=== PATIENT | female | born 1945 | race Caucasian/White ===

== ENCOUNTER → 2023-07-18 15:03 | Outpatient (REF) | payer OTHER, SELFPAY ==
[2023-07-18 15:59] LABS: % Basophils 0.5 % (0-2); % Immature Granulocytes 0.5 % (0-0.5); % Lymphocytes 40.8 % (20.5-51.1); % Monocytes 11.6 % (1.7-9.3); % Neutrophils 44.6 % (42.2-75.2); Absolute Eosinophils 0.2 10^3/uL (0-0.7); Absolute Lymphocytes 3.4 10^3/uL (1.2-3.4); Absolute Neutrophils 3.7 10^3/uL (1.4-6.5); Hematocrit 42.5 % (37.0-47.0); Hemoglobin 14.9 g/dL (12.0-16.0); Mean Corp Hgb Conc. 35.1 g/dL (33.0-37.0); Mean Corpuscular Hgb 32.4 pg (27.0-31.0); Mean Corpuscular Volume 92.4 fL (81.0-99.0); Mean Platelet Volume 9.7 fL (7.4-10.4); Nucleated Red Blood Cells % 0 %; Platelet Count 253 10^3/uL (130-400); Red Cell Dist. Width 12.8 % (11.5-14.5); White Blood Cell Count 8.4 10^3/uL (4.8-10.8)
[2023-07-18 16:00] LABS: Urine Albumin Trace (Neg - Trace); Urine Bilirubin Negative (Negative); Urine Character Slightly Cloudy (Clear); Urine Color Yellow; Urine Glucose Negative (Negative); Urine Ketone Negative (Negative); Urine Leukocyte 2+ (Negative); Urine Nitrite Negative (Negative); Urine Occult Blood 2+ (Negative); Urine Specific Gravity 1.015 (<1.030); Urine Urobilinogen Negative (Neg - 1+)
[2023-07-18 16:13] LABS: Blood Urea Nitrogen 23 mg/dl (7-17); Calcium 9.6 mg/dl (8.4-10.2); Carbon Dioxide 24 mmol/L (22-30); Chloride 102 mmol/L (98-107); Glucose 134 mg/dl (70-99); Potassium 3.8 mmol/L (3.5-5.1); Sodium 136 mmol/L (135-145); Urine Squamous Cell 0-2 /LPF (Few); eGFR > 60.00
[2023-07-18 16:14] LABS: Urine Bacteria Many (Negative); Urine White Cell >100 /HPF (0-5)
== END ==
LOC: RAD 15:03
PROVIDERS: ATTENDING PHYSICIAN Registered Nurse Ambulatory Care
DX: R35.0 Frequency of micturition (principal); R05.1 Acute cough
CPT/HCPCS: 36415; 71046; 80048; 81003; 81015; 85025; 87077; 87086; 87186

== ENCOUNTER → 2024-02-11 13:34 | Outpatient (REF) | payer OTHER, SELFPAY | LOC: WDC 13:34 | PROVIDERS: ATTENDING PHYSICIAN Family Medicine | DX: Z12.31 Encounter for screening mammogram for malignant neoplasm of breast (principal) | CPT/HCPCS: 77063; 77067 ==

== ENCOUNTER → 2024-02-20 16:21 | Outpatient (REF) | payer OTHER, SELFPAY | LOC: RAD 16:21 | PROVIDERS: ATTENDING PHYSICIAN Family Medicine | DX: R31.9 Hematuria, unspecified (principal); R80.9 Proteinuria, unspecified | CPT/HCPCS: 76770 ==

== ENCOUNTER 2025-01-09 07:20 | Day surgery (SDC) | payer OTHER, SELFPAY ==
--- NOTE | 2025-01-06 09:13 | HPS.HSE ---
Family Physician
-
Family Physician: NO INTERVIEW UNKNOWN
Chief Complaint
-
Paroxysmal atrial fibrillation.
History of Present Illness
The patient is an 79-year-old female presenting today for paroxysmal atrial fibrillation. The patient reports a history of elevated heart rates, mild chest discomfort, and exertional dyspnea and fatigue secondary to her arrhythmia. She
previously underwent pulmonary vein isolation in 2008, a redo ablation in 2011, and a convergent endo and epi LA ablation in 2012. She has also undergone 2 BLAYNE-guided cardioversions in 2011 and 2012. She is on current pharmacological therapy with
Diltiazem and Metoprolol Succinate. She is on Eliquis for oral anticoagulation. She initially was hesitant to take it twice a day and was only taking it once a day. As of more recently, however, she has agreed to take it twice a day. She reports no
major bleeding with the increased dosage. She is interested in pursuing pulmonary vein isolation for further arrhythmia management given her significant symptoms. Prior to her ablation, she will proceed first with a transesophageal echocardiogram to
definitively rule out a left atrial appendage thrombus. She denies any current complaints today such as chest pain and shortness of breath at rest, nausea, vomiting, diarrhea, cough, sore throat, or fever.
Medical History
Past Medical History
Past Medical History: Reports Other
Additional Past Medical History:
1. Paroxysmal atrial fibrillation, status post BLAYNE guided cardioversion , pulmonary vein isolation 2008, redo ablation 2011, and convergent endo and epi LA ablation 2012; pharmacological therapy with Diltiazem and Metoprolol Succinate, oral
anticoagulation with Eliquis.
2. Atypical atrial flutter.
3. Atrial tachycardia.
4. Hypertension.
5. Hyperlipidemia.
6. Aortic atherosclerosis.
7. Mild to moderate valvular disease.
8. Obstructive sleep apnea, intolerant of CPAP.
9. GERD.
10. Dysphagia.
11. Balance difficulties.
12. Chronic dizziness.
13. Multilevel degenerative disc disease.
14. Lumbar stenosis.
15. Osteoarthritis, status post left total knee arthroplasty, 2010, and right total knee arthroplasty, approximately 5 years ago.
16. Iron deficiency anemia.
17. Bladder prolapse with current pessary.
18. Interstitial cystitis.
19. Prediabetes.
20. Hearing impairment.
21. Poor historian.
22. Obesity, BMI 35.7.
Past Surgical History: Reports Other
Additional Past Surgical History:
1. Pulmonary vein isolation.
2. Redo atrial fibrillation ablation.
3. Convergent endo and epi LA ablation.
4. BLAYNE-guided cardioversion x2.
5. Loop recorder implant and subsequent removal.
6. Cardiac catheterization.
7. Left total knee arthroplasty.
8. Right total knee arthroplasty.
9. Total abdominal hysterectomy and bilateral salpingo-oophorectomy.
10. Open incisional hernia repair with mesh.
11. Appendectomy.
12. Multiple epidural steroid injections.
13. Bilateral cataract extraction.
14. Colonoscopy.
Social History
Tobacco: Non-smoker
Alcohol: None
Personal:
Living: Other (The patient lives in a one-story home with her . She reports that her grandson lives there Sunday through Sunday due to close proximity to work. )
Family History
Family History: Not pertinent
Allergies / Home Medications
Allergy/Medication List:
HOME MEDICATIONS:
1. Apixaban 5 mg p.o. twice a day.
2. Cholecalciferol 50 mcg p.o. daily.
3. Ellura 200 mg p.o. twice a day.
4. Diltiazem HCl 300 mg p.o. daily.
5. Estradiol 1 application vaginal daily.
6. Losartan-hydrochlorothiazide 100-25 mg p.o. daily.
7. Metoprolol succinate 25 mg p.o. daily.
8. Hewitt-3 fish oil 2 capsules p.o. daily.
ALLERGIES: Codeine. Lisinopril. Oxycodone. Sotalol. Verapamil. Mold.
Review of Systems
-
A 12 point ROS was completed and negative except as noted: Yes
Physical Exam
Vital Signs
Blood pressure 133/83, heart rate 114, respirations 18, pulse ox 94%, increasing to 97% with encouraged deep breathing.
Height 5 feet 4 inches, weight 94.3 kg, BMI 35.7.
Physical Exam
General: Well Developed, Well Nourished and No Apparent Distress
HEENT: NormoCephalic, Moist mucous membranes, Atraumatic and Hearing Impaired
Respiratory: Clear
Cardiac: Irregular Rhythm
GI: Soft, Non Tender, Non Distended and Other (Obese. )
Musculoskeletal: No Edema and Other (Poor balance noted. )
Skin: Warm and Dry
Neuro: AO x 3 and Nonfocal/grossly intact
Laboratory Results
-
DIAGNOSTIC STUDIES as of 01/05/2025: White blood cell count 9.0, hemoglobin 13.3, platelet count 247,000. PT 16.0, INR 1.25. Sodium 137, potassium 3.9, BUN 17, creatinine 0.6, glucose 127, calcium 9.8, magnesium 1.7, AST 20, ALT 18, albumin 4.5.
Blood type A positive.
EKG 01/05/2025: Atrial flutter with variable AV block. Nonspecific ST and T-wave abnormality. Prolonged QT.
Echocardiogram 02/01/2022: Ejection fraction is 65-70 percent. Thickened mitral valve leaflets, tips greater than base, with moderate mitral regurgitation. Trileaflet thickened aortic valve without stenosis or regurgitation. Mild tricuspid
regurgitation. Estimated pulmonary artery pressure of 46 mmHg, assuming a right atrial pressure of 10 mmHg. Mild pulmonic regurgitation.
Impression/Plan
-
IMPRESSION/PLAN:
1. Paroxysmal atrial fibrillation: The patient is in need of pulmonary vein isolation; however, prior to undergoing her ablation, she will proceed first with a transesophageal echocardiogram to definitively rule out a left atrial appendage thrombus.
This is scheduled for 01/09/[address] Kory Gan. The benefits and risks of the procedure have been explained to the patient. The patient understands these risks and wishes to proceed. She is aware to continue her Eliquis without
interruption pre-operatively.
[2025-01-09 08:05] VITALS: BMI 36.4
== END 2025-01-09 10:12 | disposition home or self-care (01) ==
LOC: CATH 07:20
PROVIDERS: ATTENDING PHYSICIAN Internal Medicine Cardiovascular Disease; FAMILY PHYSICIAN Family Medicine; REFERRING PHYSICIAN Internal Medicine Cardiovascular Disease
DX: I48.0 Paroxysmal atrial fibrillation (principal); I08.1 Rheumatic disorders of both mitral and tricuspid valves; I48.4 Atypical atrial flutter; R00.0 Tachycardia, unspecified; I10 Essential (primary) hypertension; E78.5 Hyperlipidemia, unspecified; I70.0 Atherosclerosis of aorta; G47.33 Obstructive sleep apnea (adult) (pediatric); K21.9 Gastro-esophageal reflux disease without esophagitis; R13.10 Dysphagia, unspecified; M19.90 Unspecified osteoarthritis, unspecified site; E66.9 Obesity, unspecified; Z88.5 Allergy status to narcotic agent; Z79.899 Other long term (current) drug therapy; Z90.49 Acquired absence of other specified parts of digestive tract; Z88.8 Allergy status to other drugs, medicaments and biological substances; Z90.722 Acquired absence of ovaries, bilateral; Z90.710 Acquired absence of both cervix and uterus; Z96.653 Presence of artificial knee joint, bilateral; M48.061 Spinal stenosis, lumbar region without neurogenic claudication; Z79.01 Long term (current) use of anticoagulants
CPT/HCPCS: 93312; 93320; 93325

== ENCOUNTER 2025-01-12 10:23 | Day surgery (SDC) | payer OTHER, SELFPAY ==
[2025-01-05 08:10] VITALS: BMI 35.7
[2025-01-05 08:39] LABS: Hematocrit 39.2 % (37.0-47.0); Hemoglobin 13.3 g/dL (12.0-16.0); Mean Corp Hgb Conc. 33.9 g/dL (33.0-37.0); Mean Corpuscular Volume 90.5 fL (81.0-99.0); Nucleated Red Blood Cells % 0 %; Platelet Count 247 10^3/uL (130-400); Red Cell Dist. Width 14.1 % (11.5-14.5)
[2025-01-05 08:49] LABS: INR 1.25; PT 16.0 Sec (11.4-14.6)
[2025-01-05 08:55] LABS: ALT (SGPT) 18 U/L (0-35); AST (SGOT) 20 U/L (14-36); Albumin 4.5 g/dl (3.5-5.0); Alkaline Phosphatase 85 U/L (38-126); Blood Urea Nitrogen 17 mg/dl (7-17); Calcium 9.8 mg/dl (8.4-10.2); Carbon Dioxide 24 mmol/L (22-30); Chloride 103 mmol/L (98-107); Estimated Creatinine Clearance 82 ml/min; Glucose 127 mg/dl (70-99); Magnesium 1.7 mg/dl (1.6-2.3); Potassium 3.9 mmol/L (3.5-5.1); Sodium 137 mmol/L (135-145); Total Protein 7.6 g/dl (6.3-8.2); eGFR > 60.00
[2025-01-12] VITALS (14 sets, daily range): BP systolic 137–176; BP diastolic 79–158
--- NOTE | 2025-01-12 07:40 | ITS.CL.ABL ---
[employer] - Ablation
Ablation
Procedure Report:
ELECTROPHYSIOLOGIC STUDY AND POSSIBLE ABLATION
DATE: January 12, 2025
Primary Care Provider: Dr. Bruna Linder
Primary Health Information Technician: Dr. Girma Kerr
INDICATION:
Symptomatic Atrial Fibrillation.
Persistent atrial tachyarrhythmia
HISTORY: See H and P.
Symptomatic AF, poorly controlled with attempted medical therapy
Initial PVI 08/19/08 followed by redo RF PVI 04/02/12 and then Convergent PVI (epi followed by Cryoballoon endocardial ablation) 07/22/12.
She has developed progressively and highly symptomatic atrial tachyarrhythmia which appears to be an atypical/left atrial tachyarrhythmia.
Transesophageal echocardiogram obtained January 09, 2025 finds normal left ventricular size and function with no wall motion abnormality, no significant valvular disease and no evidence of left atrial appendage thrombus.
HAS-BLED: 1
Age
CHADSVASc: 4
HTN
Age
F Gender
PRESENTING RHYTHM: atrial flutter, atypical
HISTORY: See H and P.
Symptomatic AF, poorly controlled with attempted medical therapy.
ANTICOAGULATION: Eliquis 5 mg twice daily
'TIME-OUT': called and confirmed.
SEDATION/ANESTHESIA: provided via the anesthesia department using general anesthesia.
PROCEDURE:
Ultrasound Guidance with real-time visualization of needle insertion and vessel patency performed by ar for femoral venous Vascular Access.
Under real-time US guidance, the needle was advanced with negative pressure into the vein. The needle was seen entering the vessel lumen with a good return of dark red flow, the syringe was removed, non-pulsatile, dark red blood low was noted and
the wire was passed without difficulty, then the needle was removed. US confirmed the wire was in the vein, not going into an artery,
Images were taken and saved for the patient's permanent record. Imaging findings typical femoral venous anatomy. Direct visualization of needle puncture into the femoral vein was observed and recorded.
A decapolar CS catheter was placed within the CS for mapping and pacing.
The intracardiac ultrasound catheter was positioned in the RA for continuous intracardiac ultrasound imaging.
Heparin bolus and infusion to target ACT at 300 -350 seconds was administered. Transseptal puncture was performed. This entailed advancing a sheath with dilator into the superior vena cava and withdrawing both (monitoring intracardiac ultrasound,
fluoroscopy and tip pressure) with the tip oriented toward the atrial septum. The fossa ovalis was engaged (indicated by sudden displacement of the sheath tip as well as tenting of the fossa seen on intracardiac ultrasound).
Transseptal puncture was performed. Left atrial catheter position was confirmed by echocardiographic imaging, pressure monitoring (LA mean pressure 15 mm Hg) and fluoroscopy. The sheath was advanced over the dilator and positioned in the left
atrium.
The CamStenta multipolar mapping/ablation Sphere-9 catheter was positioned through the transseptal sheath for high density mapping.
Geometry and voltage mapping was performed using the [employer] mapping system for three-dimensional electroanatomical mapping.
Catheter positioning was guided and confirmed using both I.C.E. and fluoroscopy.
High density electroanatomical three-dimensional mapping demonstrated Left common PV, RSPV, RIPV.
She presents in an atrial tachyarrhythmia at 330 ms with a distal to proximal activation sequence on the decapolar catheter positioned in the distal coronary sinus.
High density electroanatomical voltage and activation mapping demonstrated reconnection of the left inferior pulmonary vein towards its inferior quadrant and there is lack of complete posterior wall isolation with multiple areas of patchy low
voltage complex fractionated electrograms at the posterior wall of the left atrium. Additionally there is patchy low voltage complex fractionated electrograms along the ligament of Edison.
Entrainment mapping as well as activation mapping defined a clockwise mitral annular left atrial flutter circuit.
A combination of pulsed electric field energy closure to the left inferior pulmonary vein and radiofrequency energy closure to the mitral valve annulus was used to ablate along the mitral valve annulus. This ultimately slowed and terminated the
tachycardia.
Ablation then consisted of reisolating the left inferior pulmonary vein.
Next ablation was performed to isolate the posterior wall of the left atrium.
After posterior wall isolation mapping demonstrated areas of patchy low voltage as well as complex fractionated electrograms at the inferior posterior left atrium. This was addressed with an inferior ablation line.
Additionally, the area of the ligament of Edison was found to have patchy low voltage and complex fractionated electrograms this was also ablated using the sphere 9 and pulsed electric field energy.
In total, several areas of extra PV contributors to atrial fibrillation were addressed with pulsed electric field energy delivery via the sphere 9 catheter. These areas demonstrated patchy low voltage as well as complex fractionated electrograms.
These areas can be sites for the formation of rotors which can drive and maintain atrial fibrillation. These areas are known to be significant contributors to initiation and perpetuation of atrial fibrillation.
Targets for additional PFA ablation included:
LA posterior wall targeted with pulsed electric field energy isolating the posterior wall of the left atrium
After ablation of the posterior wall, additional targets were addressed:
LA inferior floor
The ridge of tissue between the left atrial appendage and the left sided pulmonary veins (Ligament of Edison )
These areas were ablated using pulsed electric field energy eliminating the extra PV contributors to atrial fibrillation.
Post ablation mapping finds entrance and exit block at each of the pulmonary veins the LA posterior wall and at the additional lines at Inferior/floor of the LA and the Ligament of Marshal rendering the sites no longer able to contribute to atrial
fibrillation.
Programmed electrical stimulation was performed and a regular atrial tachyarrhythmia at cycle length 240 ms was induced. Entrainment maneuvers as well as activation mapping demonstrated a focal atrial tachycardia at the anterior inferior base of
the left atrial appendage towards the mitral valve annulus at approximately 2:00 in GAMBIAN 30 degree view.
PFA application at this location terminated the tachycardia.
Programmed electrostimulation including burst atrial pacing as well the delivery of decremental extrastimuli down to atrial effective refractory period and no sustained arrhythmias could be induced.
Additionally, differential pacing from the coronary sinus catheter was used to assess for mitral annular block. Mitral annular block is evident with differential atrial pacing.
I.C.E. :
Pre-Ablation Post-Ablation
LVEF: 555 % 55 %
WMA: none none
Pericardial effusion: none none
LA Pressure 15
COMPLICATIONS:
none
SUMMARY:
- Mapping and ablation to isolate the PVs resulting in electrical isolation of the pulmonary veins
- Additional AF ablation sets X 2 after PVI (LA posterior wall, Inf/floor of the LA posterior wall, ligament of Edison) resulting in elimination of the targeted extra PV contributors to atrial fibrillation.
- Mapping and ablation of second tachycardia (reentraant mitral annular flutter) and distinct third tachycardia (focal left atrial tachycardia) rendering both noninducible with programmed electrical stimulation
- 3-D Electroanatomical Mapping
- Intracardiac Ultrasound
- Ultrasound guidance for vascular access
Post ablation, I discussed today's findings and results with the patient's , Long.
RECOMMENDATIONS:
- Observe in monitored bed.
- Maintain oral anticoagulation.
- Office visit with Swapna Smith on April 23, 2025
- Continue cardiovascular care with Dr. Girma Kerr
- She presents somewhat volume overloaded with elevated left atrial pressure prior to ablation and symptoms of dyspnea on exertion
Will treat with 20 mg of intravenous Lasix X 1 dose today.
Copy to:
Primary Care Provider: Dr. Bruna Linder
Primary Health Information Technician: Dr. Girma Kerr
[2025-01-12] MEDS: NSS 500 IV (10:48)
[2025-01-12] MEDS: EMEND 40 MG PO (12:17)
[2025-01-12 13:42] LABS: ACT-LR - POC 294 Seconds (116-155)
[2025-01-12 14:14] LABS: ACT-LR - POC 302 Seconds (116-155)
[2025-01-12] MEDS: LASIX 20 MG IV (15:03)
--- NOTE | 2025-01-12 16:01 | PTCARENOTE ---
Pt's bladder distended.Crying with discomfort. Unable to urinate. She was straight cathed for 1 L clear urine post order. Almost instant relief. All other assessments benign.
[2025-01-12] MEDS: CARDIZEM CD 300 MG PO (16:54)
[2025-01-12] MEDS: TOPROL XL 25 MG PO (16:54)
--- NOTE | 2025-01-12 17:09 | W.PN.UPDATE ---
Update Note
Progress Note Update
Pt seen post PFA/flutter ablation. Right groin with vascade closure, no ht/bleeding. OOB ambulating. Post EKG NSR 80s. Given 20mg IV lasix post procedure with excellent urine output. BP modestly elevated as well as HR, given metoprolol and diltiazem
with some improvement. Resume eliquis tonight. Followup at [facility] as scheduled. Home today if groin site/tele remain stable.
== END 2025-01-12 17:26 | disposition home or self-care (01) ==
LOC: CATH 10:23
PROVIDERS: ATTENDING PHYSICIAN Internal Medicine Cardiovascular Disease; FAMILY PHYSICIAN Family Medicine; OTHER PHYSICIAN Urology
DX: I48.0 Paroxysmal atrial fibrillation (principal); I48.4 Atypical atrial flutter; E66.9 Obesity, unspecified; E78.5 Hyperlipidemia, unspecified; G47.33 Obstructive sleep apnea (adult) (pediatric); I10 Essential (primary) hypertension; I08.1 Rheumatic disorders of both mitral and tricuspid valves; I47.19 Other supraventricular tachycardia; I70.0 Atherosclerosis of aorta; M19.90 Unspecified osteoarthritis, unspecified site; Z79.899 Other long term (current) drug therapy; Z87.891 Personal history of nicotine dependence; Z88.5 Allergy status to narcotic agent; Z88.8 Allergy status to other drugs, medicaments and biological substances; Z90.710 Acquired absence of both cervix and uterus; Z90.49 Acquired absence of other specified parts of digestive tract; Z96.653 Presence of artificial knee joint, bilateral; Z90.721 Acquired absence of ovaries, unilateral; M48.061 Spinal stenosis, lumbar region without neurogenic claudication; K21.9 Gastro-esophageal reflux disease without esophagitis; R73.03 Prediabetes; D50.9 Iron deficiency anemia, unspecified; H91.90 Unspecified hearing loss, unspecified ear; Z79.01 Long term (current) use of anticoagulants; N30.10 Interstitial cystitis (chronic) without hematuria; Z68.35 Body mass index [BMI] 35.0-35.9, adult
CPT/HCPCS: 36415; 80053; 83735; 85025; 85347; 85610; 86850; 86900; 86901; 93005; 93312; 93320; 93325; 93655; 93656; 93657; C1730; C1733; C1760; C1766; C1769; C1892; C1894

== ENCOUNTER → 2025-02-03 13:20 | Outpatient (REF) | payer OTHER, SELFPAY | LOC: RAD 13:20 | PROVIDERS: ATTENDING PHYSICIAN Nurse Practitioner; FAMILY PHYSICIAN Family Medicine | DX: N32.81 Overactive bladder (principal); R31.0 Gross hematuria | CPT/HCPCS: 74178; Q9967 ==

== ENCOUNTER → 2025-02-12 08:36 | Outpatient (REF) | payer OTHER, SELFPAY | LOC: WDC 08:36 | PROVIDERS: ATTENDING PHYSICIAN Family Medicine | DX: Z12.31 Encounter for screening mammogram for malignant neoplasm of breast (principal) | CPT/HCPCS: 77063; 77067 ==

== ENCOUNTER 2025-05-09 17:49 | Inpatient (IN) | payer OTHER, SELFPAY ==
[2025-05-09] VITALS (11 sets, daily range): BP systolic 143–174; BP diastolic 80–99; BMI 26.6
[2025-05-09 09:49] LABS: Hematocrit 38.3 % (37.0-47.0); Hemoglobin 13.1 g/dL (12.0-16.0); Mean Corp Hgb Conc. 34.2 g/dL (33.0-37.0); Mean Corpuscular Volume 88.7 fL (81.0-99.0); Nucleated Red Blood Cells % 0 %; Platelet Count 297 10^3/uL (130-400); Red Cell Dist. Width 14.1 % (11.5-14.5)
[2025-05-09 13:37] LABS: Blood Urea Nitrogen 15 mg/dl (7-17); Calcium 9.5 mg/dl (8.4-10.2); Carbon Dioxide 22 mmol/L (22-30); Chloride 100 mmol/L (98-107); Glucose 108 mg/dl (70-99); Sodium 137 mmol/L (135-145); eGFR > 60.00
[2025-05-09] MEDS: NSS 1000 IV (13:48)
[2025-05-09 14:25] LABS: ALT (SGPT) 32 U/L (0-35); AST (SGOT) 39 U/L (14-36); Albumin 4.6 g/dl (3.5-5.0); Alkaline Phosphatase 74 U/L (38-126); Blood Urea Nitrogen 15 mg/dl (7-17); Calcium 10.0 mg/dl (8.4-10.2); Carbon Dioxide 22 mmol/L (22-30); Chloride 100 mmol/L (98-107); Glucose 107 mg/dl (70-99); Potassium 4.0 mmol/L (3.5-5.1); Sodium 138 mmol/L (135-145); Total Protein 7.9 g/dl (6.3-8.2); eGFR > 60.00
--- NOTE | 2025-05-09 15:05 | ED.GENMED ---
History of Present Illness
<Harvey Price PA-C - Last Filed: 05/10/25 08:30>
General
Chief Complaint: Esophageal Problem
Time Seen by Provider: 05/09/25 12:29
History of Present Illness
History of Present Illness:
79-year-old female presents to the emergency department for evaluation of difficulty swallowing that has been ongoing for the past month. She has been unable to tolerate food or liquid of any kind and is lost in excess of 50 pounds during this
time. States that he will swallow small sips of liquid she immediately regurgitates. She denies any chest pain or shortness of breath. No night sweats. Denies any abdominal pain. Had an outpatient swallow lesion that was unsuccessful as the
patient could not stand due to severe weakness in order to perform the study
Past History
<Harvey Price PA-C - Last Filed: 05/10/25 08:30>
Past History
ED Past Medical History: Arrthythmia, Asthma, HTN, Hypercholesterolemia, Other (DJD, chronic back pain) and Other (Paroxysmal atrial fib status post ablation status post bilateral knee replacements left atrial tachycardia chronic low back pain
hypertension)
ED Past Surgical History: Orthopedic
Social History
Tobacco: Non-smoker
Alcohol: None
Drug: None
Personal:
Living: with family
Employment: Retired
Family History
Family History: Hypertension
Review of Systems
<Harvey Price PA-C - Last Filed: 05/10/25 08:30>
Review of Systems
Allergies reviewed?: Yes
All Other Systems: ROS reviewed and negative except as documented in HPI and ROS
Phy Exam
<Harvey Price PA-C - Last Filed: 05/10/25 08:30>
Physical Exam
Physical Exam:
GEN: Well appearing, NAD, WDWN
HEENT: Oral mucosa moist, no scleral icterus
Cardiac: Regular rate
Lung: No respiratory distress, no tachypnea
MSK: No gross deformity or injuries
Skin: Good color, no pallor or jaundice, no rashes
Neuro: AO x3, moves all extremities freely
Psych: Calm, cooperative
Course
<Harvey Price PA-C - Last Filed: 05/10/25 08:30>
Orders/Labs/Results
Orders:
Orders
05/09/25 08:58
Complete Blood Count/With Diff Urgent
05/09/25 12:43
CT Chest/abd/pel W Iv Cont Urgent
Comment: unable to tolerate PO contrast
Reason For Exam: inability to swallow, weight loss
05/09/25 12:56
Basic Metabolic Panel Urgent
05/09/25 13:24
0.9% Sodium Chloride 1000 ml [Nss] 1,000 ml IV BOLUS
05/09/25 13:49
CMP [Comprehensive Metabolic Panel] Urgent
05/09/25 17:17
EKG [Electrocardiogram (*1)] Stat
Reason for Study: Atrial Fibrillation
05/09/25 17:20
Admit/Transfer Patient As Directed
Co-Sign Provider:
Level of Care: Inpatient admission
Assign to:: Telemetry
Physician / Group: hood francois
Diagnosis: esophagel cancer
Reason for Telemetry: Arrhythmia
Date to Stop Telemetry: 05/12/25
Time to Stop Telemetry: 11:00
Reason for Hospitalization: esophageal cancer
Expected length of stay greater than two midnights?: Yes
ELOS- Estimated Length of Stay in days: 3
I certify the patient meets the requirements for IP care: Yes
05/09/25 17:21
Code Status As Directed
Resuscitation Status: Full Code
PRN Pain Medication Management As Directed
May give lesser potent ordered pain med per pt: Yes
preference::
Protocol:: Medication orders for pain may be administered in a
manner that supports deferring to patient preference
when the pt is:
- Requesting an ordered lesser potent pain medication.
Least to most potent pain medications are defined
as: acetaminophen < NSAID < tramadol < opioids
(morphine, oxycodone, hydromorphone).
- Requesting a lesser dose of the same medication IF
ORDERED.
- Requesting a less intrusive route of administration
if both routes are prescribed by the provider (PO <
IV).
05/09/25 22:47
0.9% Sodium Chloride 1000 ml [Nss] 1,000 ml IV 80 mls/hr
Acetaminophen [Tylenol] 650 mg PO Q4HPRN PRN
Bisacodyl [Dulcolax] 10 mg RECTAL [id number] PRN
Docusate W/Senna [Senokot-S] 1 tablet PO BIDPRN PRN
Polyethylene Glycol Powder [Miralax] 17 grams PO DAILYPRN PRN
05/09/25 22:47
GASTROINTESTINAL CONSULT Routine
Consulting Provider: Deondre Blackmon
Was physician already notified: Yes
ONCOLOGY CONSULT Routine
Consulting Provider: Johanne Cruz
Was physician already notified: Yes
Activity As Directed
Activity Level: As Tolerated
Pneumatic Compression Sleeves As Directed
Type: Knee high
Vital Signs As Directed
Frequency: Per unit guidelines
DX Deep Vein Thrombosis Video Routine
05/10/25 Breakfast
NPO
Allow oral meds: Yes
Allow clear liquids: Sips of Clears
05/10/25 07:02
Basic Metabolic Panel IN AM
Complete Blood Count/No Diff IN AM
05/10/25 08:00
Diltiazem Extended Release [Cardizem Cd] 300 mg PO DAILY
Metoprolol Xl [Toprol Xl] 25 mg PO DAILY
05/12/25 11:00
DC Protocol for Telemetry ONCE
Abnormal Lab Results
05/09/25 05/09/25 05/09/25
08:58 12:56 13:49
MPV 10.6 H fL
(7.4-10.4)
Absolute Monos (auto) 0.9 H 10^3/uL
(0.1-0.6)
Monocytes % 11.4 H %
(1.7-9.3)
Glucose 108 H mg/dl 107 H mg/dl
(70-99) (70-99)
AST 39 H U/L
(14-36)
05/09/25 08:58
05/09/25 13:49
Vital Signs
Initial and Last Documented VS:
Initial Vital Signs
Temp Pulse Resp BP Pulse Ox
97.8 F 120 16 150/99 99
05/09/25 08:48 05/09/25 08:48 05/09/25 08:48 05/09/25 08:48 05/09/25 08:48
Last Documented Vital Signs
Temp Pulse Resp BP Pulse Ox
98.1 F 89 16 154/85 99
05/10/25 03:00 05/10/25 04:30 05/10/25 03:00 05/10/25 04:30 05/10/25 03:00
<Buzz Silva Jr., PA-C - Last Filed: 05/09/25 17:08>
Orders/Labs/Results
Orders:
Orders
05/09/25 08:58
Complete Blood Count/With Diff Urgent
05/09/25 12:43
CT Chest/abd/pel W Iv Cont Urgent
Comment: unable to tolerate PO contrast
Reason For Exam: inability to swallow, weight loss
05/09/25 12:56
Basic Metabolic Panel Urgent
05/09/25 13:24
0.9% Sodium Chloride 1000 ml [Nss] 1,000 ml IV BOLUS
05/09/25 13:49
CMP [Comprehensive Metabolic Panel] Urgent
05/09/25 17:17
EKG [Electrocardiogram (*1)] Stat
Reason for Study: Atrial Fibrillation
05/09/25 17:20
Admit/Transfer Patient As Directed
Co-Sign Provider:
Level of Care: Inpatient admission
Assign to:: Telemetry
Physician / Group: hood francois
Diagnosis: esophagel cancer
Reason for Telemetry: Arrhythmia
Date to Stop Telemetry: 05/12/25
Time to Stop Telemetry: 11:00
Reason for Hospitalization: esophageal cancer
Expected length of stay greater than two midnights?: Yes
ELOS- Estimated Length of Stay in days: 3
I certify the patient meets the requirements for IP care: Yes
05/09/25 17:21
Code Status As Directed
Resuscitation Status: Full Code
PRN Pain Medication Management As Directed
May give lesser potent ordered pain med per pt: Yes
preference::
Protocol:: Medication orders for pain may be administered in a
manner that supports deferring to patient preference
when the pt is:
- Requesting an ordered lesser potent pain medication.
Least to most potent pain medications are defined
as: acetaminophen < NSAID < tramadol < opioids
(morphine, oxycodone, hydromorphone).
- Requesting a lesser dose of the same medication IF
ORDERED.
- Requesting a less intrusive route of administration
if both routes are prescribed by the provider (PO <
IV).
05/09/25 22:47
0.9% Sodium Chloride 1000 ml [Nss] 1,000 ml IV 80 mls/hr
Acetaminophen [Tylenol] 650 mg PO Q4HPRN PRN
Bisacodyl [Dulcolax] 10 mg RECTAL [id number] PRN
Docusate W/Senna [Senokot-S] 1 tablet PO BIDPRN PRN
Polyethylene Glycol Powder [Miralax] 17 grams PO DAILYPRN PRN
05/09/25 22:47
GASTROINTESTINAL CONSULT Routine
Consulting Provider: Deondre Blackmon
Was physician already notified: Yes
ONCOLOGY CONSULT Routine
Consulting Provider: Johanne Cruz
Was physician already notified: Yes
Activity As Directed
Activity Level: As Tolerated
Pneumatic Compression Sleeves As Directed
Type: Knee high
Vital Signs As Directed
Frequency: Per unit guidelines
DX Deep Vein Thrombosis Video Routine
05/10/25 Breakfast
NPO
Allow oral meds: Yes
Allow clear liquids: Sips of Clears
05/10/25 07:02
Basic Metabolic Panel IN AM
Complete Blood Count/No Diff IN AM
05/10/25 08:00
Diltiazem Extended Release [Cardizem Cd] 300 mg PO DAILY
Metoprolol Xl [Toprol Xl] 25 mg PO DAILY
05/12/25 11:00
DC Protocol for Telemetry ONCE
Abnormal Lab Results
05/09/25 05/09/25 05/09/25
08:58 12:56 13:49
MPV 10.6 H fL
(7.4-10.4)
Absolute Monos (auto) 0.9 H 10^3/uL
(0.1-0.6)
Monocytes % 11.4 H %
(1.7-9.3)
Glucose 108 H mg/dl 107 H mg/dl
(70-99) (70-99)
AST 39 H U/L
(14-36)
05/09/25 08:58
05/09/25 13:49
Vital Signs
Initial and Last Documented VS:
Initial Vital Signs
Temp Pulse Resp BP Pulse Ox
97.8 F 120 16 150/99 99
05/09/25 08:48 05/09/25 08:48 05/09/25 08:48 05/09/25 08:48 05/09/25 08:48
Last Documented Vital Signs
Temp Pulse Resp BP Pulse Ox
98.1 F 89 16 154/85 99
05/10/25 03:00 05/10/25 04:30 05/10/25 03:00 05/10/25 04:30 05/10/25 03:00
<Cleveland Landry, - Last Filed: 05/09/25 17:32>
Orders/Labs/Results
Orders:
Orders
05/09/25 08:58
Complete Blood Count/With Diff Urgent
05/09/25 12:43
CT Chest/abd/pel W Iv Cont Urgent
Comment: unable to tolerate PO contrast
Reason For Exam: inability to swallow, weight loss
05/09/25 12:56
Basic Metabolic Panel Urgent
05/09/25 13:24
0.9% Sodium Chloride 1000 ml [Nss] 1,000 ml IV BOLUS
05/09/25 13:49
CMP [Comprehensive Metabolic Panel] Urgent
05/09/25 17:17
EKG [Electrocardiogram (*1)] Stat
Reason for Study: Atrial Fibrillation
05/09/25 17:20
Admit/Transfer Patient As Directed
Co-Sign Provider:
Level of Care: Inpatient admission
Assign to:: Telemetry
Physician / Group: hood francois
Diagnosis: esophagel cancer
Reason for Telemetry: Arrhythmia
Date to Stop Telemetry: 05/12/25
Time to Stop Telemetry: 11:00
Reason for Hospitalization: esophageal cancer
Expected length of stay greater than two midnights?: Yes
ELOS- Estimated Length of Stay in days: 3
I certify the patient meets the requirements for IP care: Yes
05/09/25 17:21
Code Status As Directed
Resuscitation Status: Full Code
PRN Pain Medication Management As Directed
May give lesser potent ordered pain med per pt: Yes
preference::
Protocol:: Medication orders for pain may be administered in a
manner that supports deferring to patient preference
when the pt is:
- Requesting an ordered lesser potent pain medication.
Least to most potent pain medications are defined
as: acetaminophen < NSAID < tramadol < opioids
(morphine, oxycodone, hydromorphone).
- Requesting a lesser dose of the same medication IF
ORDERED.
- Requesting a less intrusive route of administration
if both routes are prescribed by the provider (PO <
IV).
05/09/25 22:47
0.9% Sodium Chloride 1000 ml [Nss] 1,000 ml IV 80 mls/hr
Acetaminophen [Tylenol] 650 mg PO Q4HPRN PRN
Bisacodyl [Dulcolax] 10 mg RECTAL [id number] PRN
Docusate W/Senna [Senokot-S] 1 tablet PO BIDPRN PRN
Polyethylene Glycol Powder [Miralax] 17 grams PO DAILYPRN PRN
05/09/25 22:47
GASTROINTESTINAL CONSULT Routine
Consulting Provider: Deondre Blackmon
Was physician already notified: Yes
ONCOLOGY CONSULT Routine
Consulting Provider: Johanne Cruz
Was physician already notified: Yes
Activity As Directed
Activity Level: As Tolerated
Pneumatic Compression Sleeves As Directed
Type: Knee high
Vital Signs As Directed
Frequency: Per unit guidelines
DX Deep Vein Thrombosis Video Routine
05/10/25 Breakfast
NPO
Allow oral meds: Yes
Allow clear liquids: Sips of Clears
05/10/25 07:02
Basic Metabolic Panel IN AM
Complete Blood Count/No Diff IN AM
05/10/25 08:00
Diltiazem Extended Release [Cardizem Cd] 300 mg PO DAILY
Metoprolol Xl [Toprol Xl] 25 mg PO DAILY
05/12/25 11:00
DC Protocol for Telemetry ONCE
Abnormal Lab Results
05/09/25 05/09/25 05/09/25
08:58 12:56 13:49
MPV 10.6 H fL
(7.4-10.4)
Absolute Monos (auto) 0.9 H 10^3/uL
(0.1-0.6)
Monocytes % 11.4 H %
(1.7-9.3)
Glucose 108 H mg/dl 107 H mg/dl
(70-99) (70-99)
AST 39 H U/L
(14-36)
05/09/25 08:58
05/09/25 13:49
Vital Signs
Initial and Last Documented VS:
Initial Vital Signs
Temp Pulse Resp BP Pulse Ox
97.8 F 120 16 150/99 99
05/09/25 08:48 05/09/25 08:48 05/09/25 08:48 05/09/25 08:48 05/09/25 08:48
Last Documented Vital Signs
Temp Pulse Resp BP Pulse Ox
98.1 F 89 16 154/85 99
05/10/25 03:00 05/10/25 04:30 05/10/25 03:00 05/10/25 04:30 05/10/25 03:00
<Harvey Price PA-C - Last Filed: 05/10/25 08:30>
*Pulse Oximetry
SaO2: 99
Oxygen Mode of Delivery: Room air
<Buzz Silva Jr., PA-C - Last Filed: 05/09/25 17:08>
*Pulse Oximetry
Patient hypoxic: no (99)
*Critical Care Note
Total Time (30-74mins, 75-104mins- exclusive of procedures): Not Applicable
<Buzz Silva Jr., PA-C - Last Filed: 05/09/25 17:08>
Update Note
Update Note:
Patient CT scan resulted showing potential esophageal carcinoma potentially explaining patient's progressive dysphagia. Also had potential metastatic disease with significant surrounding inflamed lymph nodes as well as hepatic metastasis. This was
explained to the patient and patient will be admitted for further assessment at this point.
<Cleveland Lnadry DO - Last Filed: 05/09/25 17:32>
Update Note
Update Note:
Patient CT scan resulted showing potential esophageal carcinoma potentially explaining patient's progressive dysphagia. Also had potential metastatic disease with significant surrounding inflamed lymph nodes as well as hepatic metastasis. This was
explained to the patient and patient will be admitted for further assessment at this point.
ED Attending Note
<Harvey Price PA-C - Last Filed: 05/10/25 08:30>
-
Portions of this chart may have been created with voice recognition software.� Occasional wrong word or��sound alike� substitutions may have occurred due to the inherent limitations of voice recognition software.
<Cleveland Landry DO - Last Filed: 05/09/25 17:32>
ED Attending Note
Patient seen and examined by attending physician: Yes
I performed the substantive portion of visit, reviewed & personally made and approve the management plan that is documented in note by myself or DAJA.: Yes
I performed a history and physical exam of patient and discussed management with resident, I reviewed resident's note and agree with documented findings and plan of care.: Yes
ED Attending Note:
79-year-old female presents to the ER for further evaluation of difficulty eating and inability to swallow. Vital signs reviewed, patient is awake, alert, speech is clear, no stridor, no trismus, no increased work of breathing, GCS is 15. I
reviewed all test results with physician accounting manager assistant controller. Patient agrees with plan for admission for further evaluation of new diagnosis esophageal carcinoma. She has no additional questions at the current time.
Discharge Plan
Departure
Patient Disposition: Admit
Date of Disposition: 05/09/25
Time of Disposition: 17:07
Admit to: Med/Surg
Admit to doctor: Keithy
Presentation/result/management discussed w/ accepting MD/DO: Hospitalist
Patient with high blood pressure during this ER visit?: No
Condition: Good
Covid-19: Not Applicable
Discharge Problem:
Dysphagia, Esophageal mass
Interventions
Interventions:
*General Assessment Last Done: 05/09/25 13:22
*Neglect/Abuse Screening Last Done: 05/09/25 08:50
*ED COVID-19 Vaccine History Last Done: 05/09/25 23:07
[facility] Risk Assessment Tool Last Done: 05/09/25 08:25
*Risk Screen - Suicide (C-SSRS) Last Done: 05/09/25 08:50
*Nursing Disposition Last Done: 05/09/25 23:00
GZ-Lfmtzp-Dhymodhele Assessment Last Done: 05/09/25 13:22
ED-EENT Assessment Last Done: 05/09/25 13:22
Discharge Date and Time
Discharge Date/Time: 05/09/25 23:01
--- NOTE | 2025-05-09 16:59 | HPS.HSE ---
Family Physician
-
Family Physician: NOT KNOW UNKNOWN - PT DOES
Chief Complaint
-
difficulty swallowing
History of Present Illness
79-year-old female with past medical history for asthma, hypertension, hypercholesterolemia, chronic back pain, A-fib presents to the emergency department for evaluation of difficulty swallowing that has been ongoing for the past month. She has
been unable to tolerate food or liquid of any kind and is lost in excess of 50 pounds during this time. States that he will swallow small sips of liquid she immediately regurgitates. patient complained of spitting up thick yellow sputum. She
denies any chest pain or shortness of breath. No night sweats. she complained of acid reflux and left lower quadrant pain. denied n,v,d. denied dysuria or hematuria.denied fever, chills, [place], dizzy or syncope.denied chest congestion, sob.
CT with esophageal carcinoma. admitting for further management.
Medical History
Past Medical History
Past Medical History: Reports Other
Additional Past Medical History:
Hypertension, hyperlipidemia, obstructive sleep apnea, A-fib, moderate mitral regurgitation, squamous cell cancer, left Ly HTN, cataracts, epigastric hernia, bladder prolapse, interstitial cystitis
Past Surgical History: Reports Other
Additional Past Surgical History:
Bilateral cataract surgery, open repair with mesh, cardiac conversion, ablation, left knee replacement, total abdominal hysterectomy appendectomy, laminectomy
Social History
Tobacco: Non-smoker
Alcohol: None
Drug: None
Personal:
Living: With Family
Family History
Family History: Not pertinent
Allergies / Home Medications
Allergies reflects when Allergies were last updated in [facility].
Home Medications with original date entered in [facility]
Allergy/Medication List:
Allergies
Allergy/AdvReac Type Severity Reaction Status Date / Time
codeine Allergy upset Verified 01/09/25 08:06
stomach
lisinopril Allergy COUGH Verified 01/09/25 08:06
mold Allergy congestion Verified 01/09/25 08:06
oxycodone (Oxycodone) Allergy Nausea Verified 01/09/25 08:06
sotalol (Sotalol) Allergy cough, Verified 01/09/25 08:06
nausea
verapamil (Verapamil) Allergy uncontrollable Verified 01/09/25 08:06
cough
Home Medications
diltiazem HCl 300 mg capsule,extended release 24 hr (Cartia XT) 300 mg PO DAILY 01/25/18
apixaban 5 mg tablet (Eliquis) 5 mg PO BID 01/02/25
cholecalciferol (vitamin D3) 50 mcg (2,000 unit) capsule (D3-2000) 100 mcg PO DAILY 01/02/25
cranberry extract 200 mg capsule (Ellura) 200 mg PO BID 01/02/25
losartan 100 mg-hydrochlorothiazide 25 mg tablet (Hyzaar) 1 tab PO DAILY 01/02/25
metoprolol succinate 25 mg tablet,extended release 24 hr 25 mg PO DAILY 01/02/25
omega 3-tcc-qnx-fish oil 1,200 mg (144 mg-216 mg) capsule (Fish Oil) 2 cap PO DAILY 01/02/25
multivitamin 1 tab PO DAILY 01/09/25
econazole nitrate 1 % topical cream 1 applic topical BID 05/09/25
estradiol 0.01% (0.1 mg/gram) vaginal cream g vaginal DAILY 05/09/25
Review of Systems
-
Constitutional: Reports No Symptoms
EENT: Reports No Symptoms
Respiratory: Reports No Symptoms
Cardiac: Reports No Symptoms
Abdomen/GI: Reports Abdominal Pain and Other (difficulty swallowin)
: Reports No Symptoms
Musculoskeletal: Reports No Symptoms
Skin: Reports No Symptoms
Neurological: Reports No Symptoms
Endocrine: Reports No Symptoms
Hematologic/Lymphatic: Reports No Symptoms
Psych: Reports No Symptoms
Physical Exam
Vital Signs
Vital Signs
Temp Pulse Resp BP Pulse Ox
98.9 F 88 19 165/96 100
05/09/25 11:45 05/09/25 15:15 05/09/25 15:15 05/09/25 15:00 05/09/25 15:15
Physical Exam
General: Well Developed, Well Nourished and No Apparent Distress
HEENT: NormoCephalic, Moist mucous membranes and Atraumatic
Respiratory: Clear
Cardiac: S1/S2 and Regular Rhythm; No Murmur or Rub
GI: Soft, Non Tender, Non Distended and Normal Bowel Sounds; No Organomegaly
Rectal: Deferred by Provider
Musculoskeletal: No Clubbing, No Cyanosis and No Edema
Skin: No Rash
Neuro: AO x 3 and Nonfocal/grossly intact
Psych: Calm
Laboratory Results
-
05/09/25 08:58
05/09/25 13:49
Laboratory Results
Total Bilirubin 1.2 mg/dl (0.2-1.3) 05/09/25 13:49
AST 39 U/L (14-36) H 05/09/25 13:49
ALT 32 U/L (0-35) 05/09/25 13:49
Alkaline Phosphatase 74 U/L (38-126) 05/09/25 13:49
Data Reviewed
-
Lab Data: Labs Reviewed by me
Impression/Plan
-
# Open progressive dysphagia likely from metastatic esophageal cancer
- Chest abdomen pelvis CT with impression of Circumferential wall thickening of the distal esophagus, most suspicious for esophageal carcinoma.Jackie metastatic disease in the chest and upper abdomen involving the mediastinal, bilateral hilar, distal
paraesophageal, gastrohepatic, and retroperitoneal lymph node stations.Multiple small hepatic metastases.Mild urinary bladder wall thickening. Recommend correlation with a urinalysis for cystitis.
-keep patient NPO
-fluids continued for hydration
-GI and Oncology consulted
# Paroxysmal A-fib
-Obtain EKG
-Hold Eliquis
-Metoprolol continue
-cardiology consulted.
# Essential hypertension
-Hold valsartan/HCTZ
# DVT prophylaxis
-SCDs
# CODE STATUS
-Full code
--- NOTE | 2025-05-09 17:08 | W.PN.UPDATE ---
Update Note
Progress Note Update
This note serves as an addendum to the H&P by air pumper Stephanie FINNEY�
HPI
79F Non smoker
PMHX: A Fib, A tachycardia, S/P ablation, chr LBP
- seen at ER for evaluation of difficulty swallowing for the past month
- unable to tolerate solid or liquid
- wt loss 50 pounds during this time.
- swallow small sips of liquid she immediately regurgitates.
- Denies any abdominal pain.
Had an outpatient swallow lesion that was unsuccessful as the patient could not stand due to severe weakness in order to perform the study
Relevant VS
Temp Pulse Resp BP Pulse Ox
98.9 F 88 19 165/96 100
05/09/25 11:45 05/09/25 15:15 05/09/25 15:15 05/09/25 15:00 05/09/25 15:15
PE
Gen: NAD, thin
HEENT: [place]
Neck: supple
Lungs: CTA
Cor: RRR S1 S2
Abdomen:�soft NT NG NRT
SENIOR INTERACTIVE DEVELOPER: AAO3 NFND
MS: no edema
Psych: Nl mood and affect
Relevant Data�
05/09/25 05/09/25
08:58 13:49
WBC 8.1
Hgb 13.1
Plt Count 297
Creatinine 0.7
eGFR > 60.00
Glucose 107 H
Total Bilirubin 1.2
AST 39 H
ALT 32
Alkaline Phosphatase [address] Chest/abd/pel W Iv Cont
- Circumferential wall thickening of the distal esophagus, most suspicious for esophageal carcinoma.
- Jackie metastatic disease in the chest and upper abdomen involving the mediastinal, bilateral hilar, distal paraesophageal, gastrohepatic, and retroperitoneal lymph node stations.
- Multiple small hepatic metastases.
- Mild urinary bladder wall thickening. Recommend correlation with a urinalysis for cystitis.
ASSESSMENT & PLAN
Newly Dxed metastatic liver dz, associated diffuse LAD above and below the diaphragm
Suspected distal esophageal CA
Associated significant wt loss and dysphagia
- Keep NPO except ice chips
- supportive care with IVF
- Evaluation for tissue Dxs - GI and Oncology consult
Regular rhythm
HX Prx AF
s/p ablation
- EKG to confirm NSR
- Hold Eliquis for pending Tissue Dxs
- c/w CAN RECONDITIONER Metoprolol XL and diltiazem CD - if she does not tolerate dequan chnge to IV
- Known to Dr Kameron Barnes ( [facility] )
pHTN
- will hold Losartan for now
DVT Px: SCD while holding eliquis
Full code
IP TLM
--- NOTE | 2025-05-09 21:21 | W.PN.UPDATE ---
Update Note
Progress Note Update
2100 RN reports pt fall.
Pt states she was fixing her bed sheets when she lost balance and fell landing on left hip. Denies dizziness. Pt is on eliquis but denying hitting head. Was able to get up with assist of nurse and get back into bed. No visible injury to left hip. No
pain with left leg rotation or lifting. Explained that she needs to call before getting oob. Also explained that if she should have any pain to that left hip let nurse know and xray will be obtained. Pt agrees. vital signs stable.
--- NOTE | 2025-05-09 23:00 | PTCARENOTE ---
Patient arrived to [facility] from ED via stretcher, ambulated from stretcher to bathroom to void and then to bed with standby assistance. Upon arrival, patient stated 'I fell recently, a couple days ago I guess.' In reading ED notes, patient fell in ED
while trying to fix blankets on her stretcher. Bed alarm placed and maintained. Patient verbalizes use of call liu. Initiated on monitoring engineer #[id number]. IVFs started per MD orders. Remains NPO at this time states that she has been having trouble
keeping any food and liquids down. Will monitor closely.
[2025-05-10] VITALS (8 sets, daily range): BP systolic 142–170; BP diastolic 74–91
--- NOTE | 2025-05-10 01:19 | PTCARENOTE ---
HR elevated with ambulation to bathroom, 160-180s, recovers back to 80-90s quickly once at rest. Patient asymptomatic, no complaints. Discussed safer options for voiding at this time, patient agreeable to use BSC and will monitor HR during that
time. Call lui in reach, will ring for assistance. Will monitor.
[2025-05-10] MEDS: NSS 1000 IV ×2 (01:59→17:13)
--- NOTE | 2025-05-10 06:25 | CON.GI ---
Consultation
-
Date/Time Consultation Requested: 05/09/252246
Date/Time Consultation Performed: 05/10/25, 06
Requesting Provider: Naomi LOZANO
Performing Provider: Deondre Blackmon DO
Reason for Consultation: Dysphagia, c/f esophageal cancer
Medical History
Chief Complaint / HPI
Chief Complaint: Difficult swallowing
History of Present Illness:
Ms. Akers is a 79 y.o female with a past medical history of HTN, HLD, chronic LBP, moderate MR, and A Fib (on eliquis) who presented to the ED due to concern for worsening dysphagia over the past month. Found to have CT imaging concerning for
esophageal carcinoma for which GI has been consulted for further evaluation and management.
Patient reports ongoing dysphagia over the past month ever since around . Since that time she has had ongoing difficulty tolerating both solid food and liquids and reports an approximate 50 pound unintentional weight loss during this
time. Reports her symptoms continue to worsen where she has been unable to tolerate solid food and started to have difficulty swallowing small sips of liquid with subsequent regurgitation as well as nausea/vomiting. Otherwise, she denies any
coffee-ground emesis, hematemesis, melena or other bloody stools. She has never had a prior upper endoscopy in the past. There is no family history of esophageal cancer or other known GI cancers in any first-degree relatives. Denies any prior
smoking history or significant alcohol use. No other significant NSAIDs. Her last dose of Eliquis was 2 days ago (05/08�). She recently was ordered to have an outpatient swallow study however had difficulty with this and was unable to be
performed. Given her worsening symptoms she came to the ED for further evaluation.
In the ED, patient was afebrile and HD-stable. Labs notable for BUN 15, Logistics Team Lead 0.7, mildly elevated AST 39 and otherwise normal LFTs. CBC with Hgb 13.1. CT CAP 1/ IV contrast 05/09 revealed circumferential wall thickening of the distal esophagus, most
suspicious for esophageal carcinoma along with concern for ilsa metastatic disease in the chest and upper abdomen involving the mediastinal, bilateral hilar, distal paraesophageal, gastrohepatic, and retroperitoneal lymph node stations and multiple
small hepatic metastases without biliary ductal dilatation. Patient started on IVF and admitted to medicine for further management.
Past Medical History
Past Medical History: Other (Arrthythmia, Asthma, HTN, Hypercholesterolemia, Other (DJD, chronic back pain) and Other (Paroxysmal atrial fib status post ablation status post bilateral knee replacements left atrial tachycardia chronic low back pain
hypertension))
Past Surgical History: Orthopedic
Social History
Tobacco: Non-Smoker
Alcohol: None
Personal:
Living: With Family
Allergies / Home Medications
Allergy/AdvReac Type Severity Reaction Status Date / Time
codeine Allergy upset Verified 01/09/25 08:06
stomach
lisinopril Allergy COUGH Verified 01/09/25 08:06
mold Allergy congestion Verified 01/09/25 08:06
oxycodone (Oxycodone) Allergy Nausea Verified 01/09/25 08:06
sotalol (Sotalol) Allergy cough, Verified 01/09/25 08:06
nausea
verapamil (Verapamil) Allergy uncontrollable Verified 01/09/25 08:06
cough
�Medication �Instructions �Recorded
diltiazem HCl 300 mg 300 mg PO DAILY 01/25/18
capsule,extended release 24 hr
(Cartia XT)
apixaban 5 mg tablet (Eliquis) 5 mg PO BID 01/02/25
cholecalciferol (vitamin D3) 50 100 mcg PO DAILY 01/02/25
mcg (2,000 unit) capsule (D3-2000)
cranberry extract 200 mg capsule 200 mg PO BID 01/02/25
(Ellura)
losartan 100 1 tab PO DAILY 01/02/25
mg-hydrochlorothiazide 25 mg
tablet (Hyzaar)
metoprolol succinate 25 mg 25 mg PO DAILY 01/02/25
tablet,extended release 24 hr
omega 0-zkd-ghq-fish oil 1,200 mg 2 cap PO DAILY 01/02/25
(144 mg-216 mg) capsule (Fish Oil)
multivitamin 1 tab PO DAILY 01/09/25
econazole nitrate 1 % topical cream 1 applic topical BID 05/09/25
estradiol 0.01% (0.1 mg/gram) g vaginal DAILY 05/09/25
vaginal cream
Review of Systems
-
All other systems: A 12 pt ROS was Negative except as stated above in HPI
Vital Signs
Temp Pulse Resp BP Pulse Ox
98.1 F 95 16 165/91 99
05/10/25 03:00 05/10/25 03:00 05/10/25 03:00 05/10/25 03:00 05/10/25 03:00
Physical Exam
Exam
General: No Apparent Distress, Comfortable and Other (Thin, cachectic appearing elderly female)
HEENT: Anicteric, Moist Mucous Membranes and Other (Evidence of bitemporal muscle wasting)
Respiratory: Non Labored Respirations
GI: Soft, Non Tender and Non Distended
Skin: Warm
Neuro: Nonfocal/Grossly Intact
Psych: Calm
Results
WBC 8.1 10^3/uL (4.8-10.8) 05/09/25 08:58
Hgb 13.1 g/dL (12.0-16.0) 05/09/25 08:58
Hct 38.3 % (37.0-47.0) 05/09/25 08:58
MCV 88.7 fL (81.0-99.0) 05/09/25 08:58
Plt Count 297 10^3/uL (130-400) 05/09/25 08:58
Absolute Neuts (auto) 5.1 10^3/uL (1.4-6.5) 05/09/25 08:58
Sodium 138 mmol/L (135-145) 05/09/25 13:49
Potassium 4.0 mmol/L (3.5-5.1) 05/09/25 13:49
Chloride 100 mmol/L (98-107) 05/09/25 13:49
Carbon Dioxide 22 mmol/L (22-30) 05/09/25 13:49
BUN 15 mg/dl (7-17) 05/09/25 13:49
Creatinine 0.7 mg/dL (0.6-1.0) 05/09/25 13:49
Calcium 10.0 mg/dl (8.4-10.2) 05/09/25 13:49
Total Bilirubin 1.2 mg/dl (0.2-1.3) 05/09/25 13:49
AST 39 U/L (14-36) H 05/09/25 13:49
ALT 32 U/L (0-35) 05/09/25 13:49
Alkaline Phosphatase 74 U/L (38-126) 05/09/25 13:49
Diagnostic Image Results / GI studies: As detailed above
Assessment / Plan
-
Ms. Akers is a 79 y.o female with a past medical history of HTN, HLD, chronic LBP, moderate MR, and A Fib (on eliquis) who presented to the ED due to concern for worsening dysphagia over the past month. Found to have CT imaging concerning for
esophageal carcinoma for which GI has been consulted for further evaluation and management.
#Esophageal Dysphagia
#C/f Esophageal Malignancy on CT Imaging
#Metastatic Lymphadenopathy
#Hepatic Lesions, c/f Mets
#Unintentional Weight Loss (50 lbs)
Impression: Patient presenting with chronic, worsening esophageal dysphagia to both liquids and solids along with a 50 pound unintentional weight loss. CT imaging unfortunately revealed circumferential wall thickening of the distal esophagus which
was highly suspicious for esophageal carcinoma. Additionally, there was concern for ilas metastatic disease in the chest and upper abdomen along with multiple small hepatic lesions concerning for hepatic mets. This is all highly concerning for
metastatic esophageal cancer and given location and distal esophagus, likely esophageal adenocarcinoma. Would still benefit from a diagnostic EGD for further evaluation and would plan to obtain biopsies to obtain tissue diagnosis. Furthermore,
would defer EUS given evidence of metastatic disease on her recent CT CAP however pending her EGD may benefit from an eventual placement of a palliative esophageal stent pending tissue diagnosis and oncology evaluation.
Recommendations:
- Okay for sips of liquids and ice chips. Keep NPO at MN
- Agree with IVF to maintain euvolemia
- Start IV PPI 40 mg BiD
- Plan for diagnostic EGD tomorrow, 05/11/25, for further evaluation would plan to obtain biopsies for tissue diagnosis (will send for bashir)
- Reviewed benefits and risks with the patient this AM. Patient wishes to proceed with EGD tomorrow
- Continue to hold Eliquis, last dose 05/08
- Oncology has been consulted, appreciate recommendations
- IV antiemetics PRN
- Rest of ongoing support care as per primary team
GI will continue to follow, please call with any questions or concerns.
Data Reviewed
-
Radiology: Image Personally Visualized and interpreted and Report Reviewed by me
CT Scan: Image Personally Visualized and interpreted and Report Reviewed by me
Old Records: Reviewed
-
-
Thank you for consultation and allowing me to participate in the patient's care. Please call the supervisor electronic testing GI physician during the after hours with any questions or concerns.
[2025-05-10 07:36] LABS: Hematocrit 35.0 % (37.0-47.0); Hemoglobin 11.8 g/dL (12.0-16.0); Mean Corp Hgb Conc. 33.7 g/dL (33.0-37.0); Mean Corpuscular Volume 91.6 fL (81.0-99.0); Platelet Count 251 10^3/uL (130-400); Red Cell Dist. Width 14.4 % (11.5-14.5)
[2025-05-10 08:17] LABS: Blood Urea Nitrogen 14 mg/dl (7-17); Calcium 9.2 mg/dl (8.4-10.2); Carbon Dioxide 23 mmol/L (22-30); Chloride 104 mmol/L (98-107); Estimated Creatinine Clearance 70 ml/min; Glucose 91 mg/dl (70-99); Potassium 3.7 mmol/L (3.5-5.1); Sodium 139 mmol/L (135-145); eGFR > 60.00
[2025-05-10 08:29] LABS: Magnesium 1.4 mg/dl (1.6-2.3)
--- NOTE | 2025-05-10 10:32 | CM ---
patient seen at bedside
IA completed
EGD tomorrow
dx: esophagel ca
past medical history of HTN, HLD, chronic LBP, moderate MR, and A Fib (on eliquis)
Patient lives with spouse in a 1 story home with basement, 2 [address]
PLOF: Independent, uses walker when she goes out
DME: [employer]
has had VN in past does not recall agency, denies Rehab
PCP: Bruna Linder
Pharmacy: [facility], [address], [place]
PLAN: TBD, follow hospital progress, CM to follow for needs
[2025-05-10] MEDS: PROTONIX IV 40 MG IV ×2 (10:37→20:07)
[2025-05-10] MEDS: MAGNESIUM SULFATE 100 IV (10:38)
[2025-05-10] MEDS: TOPROL XL 25 MG PO (10:38)
[2025-05-10] MEDS: CARDIZEM CD 300 MG PO (10:39)
[2025-05-10] MEDS: NSS (PRESERVATIVE FREE) 10 ML IV ×2 (10:42→20:06)
--- NOTE | 2025-05-10 12:05 | W.PN.HOSP.TC ---
Today's Communication/Plan
-
Cont IVF
PPI
EGD in am
CCB/BB
hold eliquis
Assessment / Plan
Assessment / Plan
General: Well Developed, Well Nourished and No Apparent Distress
HEENT: NormoCephalic, Moist mucous membranes and Atraumatic
Respiratory: Clear
Cardiac: S1/S2 and Regular Rhythm; No Murmur or Rub
GI: Soft, Non Tender, Non Distended and Normal Bowel Sounds; No Organomegaly
Rectal: Deferred by Provider
Musculoskeletal: No Clubbing, No Cyanosis and No Edema
Skin: No Rash
Neuro: AO x 3 and Nonfocal/grossly intact
Psych: Calm
progressive dysphagia likely from metastatic esophageal cancer
- Chest abdomen pelvis CT with impression of Circumferential wall thickening of the distal esophagus, most suspicious for esophageal carcinoma.Jackie metastatic disease in the chest and upper abdomen involving the mediastinal, bilateral hilar, distal
paraesophageal, gastrohepatic, and retroperitoneal lymph node stations.Multiple small hepatic metastases.Mild urinary bladder wall thickening. Recommend correlation with a urinalysis for cystitis.
-keep patient NPO
-fluids continued for hydration
-Plan for EGD in am.
-ppi for now
-GI and Oncology consulted
# Paroxysmal A-fib
-Hold Eliquis for procedural requirement
-Metoprolol and cardizem continue
# Essential hypertension
-Hold valsartan/HCTZ
#hypomag
-replete/monitor
# DVT prophylaxis
-SCDs
# CODE STATUS
-Full code
Anticipated Discharge: > 48 hours
Subjective/Interval History
-
Date of Service: May 10, 2025
states mouth is dry
Objective Data
-
Labs:
Laboratory Results
05/10/25
07:02
WBC 8.1
Hgb 11.8 L
Hct 35.0 L
Plt Count 251
Sodium 139
Potassium 3.7
Chloride 104
Carbon Dioxide 23
BUN 14
Creatinine 0.6
Glucose 91
Calcium 9.2
Vital Signs:
Vital Signs
Temp Pulse Resp BP Pulse Ox
97.2 F 102 20 170/90 99
05/10/25 08:59 05/10/25 08:59 05/10/25 08:59 05/10/25 08:59 05/10/25 08:59
I&O
05/09/25 05/10/25 05/11/25
06:59 06:59 06:59
Intake Total 0 / 0
Balance 0 / 0
--- NOTE | 2025-05-10 17:28 | PTCARENOTE ---
Patient maintained NPO during shift with IVF running NSS 80ml/hr. Used basin frequently to spit in. Blood pressure elevated during shift, communicated with MD regarding BP - monitor for now. Assist x1 to bedside commode. Continues on bed alarm. David
on bedside table to use while waiting for call david on remote to be repaired.
--- NOTE | 2025-05-10 21:08 | CON.ONC ---
Consultation
-
Date Consultation Requested: 05/09/25
Date Consultation Performed: 05/10/25
Requesting Provider: MARTA Prince
Performing Provider: Floresita Miller MD
Reason for Consultation: Probable esophageal cancer
Impression
Impression
Distal esophageal mass
Unintentional weight loss
Possible liver mets
Plan
Plan
Plan for EGD is noted, await path.
Needs feeding tube of some kind.
Performance status seems adequate for treatment.
Thank you for consult, will follow along with you.
Patient History
History of Present Illness
79 yo woman with recent onset difficulty swallowing and 50-lb weight loss. Imaging studies showed distal esophageal thickening, multiple areas of abnormally enlarged lymph nodes and probable small liver mets. Pt able to get down some liquids but a
lot comes back up. Denies pain currently.
Past-Medical/Surgical History
Past Medical History
Arrythmia, Asthma, HTN, Hypercholesterolemia, Other (DJD, chronic back pain) and Other (Paroxysmal atrial fib status post ablation status post bilateral knee replacements left atrial tachycardia chronic low back pain hypertension)
Past Surgical History
Orthopedic
Social History
Tobacco: Non-Smoker
Alcohol: None
Personal:
Living: With Family
Allergies / Home Medications
Patient Medication
�Medication �Instructions �Recorded �Confirmed �Last Taken �Type
diltiazem HCl 300 mg 300 mg PO DAILY 01/25/18 05/09/25 01/11/25 06:00 History
capsule,extended release 24 hr
(Cartia XT)
apixaban 5 mg tablet (Eliquis) 5 mg PO BID 01/02/25 05/09/25 01/11/25 23:00 History
cholecalciferol (vitamin D3) 50 100 mcg PO DAILY 01/02/25 05/09/25 01/11/25 06:00 History
mcg (2,000 unit) capsule (D3-2000)
cranberry extract 200 mg capsule 200 mg PO BID 01/02/25 01/12/25 01/11/25 06:00 History
(Ellura)
losartan 100 1 tab PO DAILY 01/02/25 05/09/25 01/11/25 06:00 History
mg-hydrochlorothiazide 25 mg
tablet (Hyzaar)
metoprolol succinate 25 mg 25 mg PO DAILY 01/02/25 01/12/25 01/11/25 06:00 History
tablet,extended release 24 hr
omega 8-nwb-pby-fish oil 1,200 mg 2 cap PO DAILY 01/02/25 05/09/25 01/11/25 06:00 History
(144 mg-216 mg) capsule (Fish Oil)
multivitamin 1 tab PO DAILY 01/09/25 05/09/25 01/11/25 05:00 History
econazole nitrate 1 % topical cream 1 applic topical BID 05/09/25 05/09/25 Unknown History
estradiol 0.01% (0.1 mg/gram) g vaginal DAILY 05/09/25 Unknown History
vaginal cream
Active Medications
Generic Name Dose Route Start Last Admin
Trade Name Freq PRN Reason Stop Dose Admin
Acetaminophen 650 mg 05/09/25 22:47
Acetaminophen 325 Mg Tablet PO 06/06/25 22:46
Q4HPRN PRN
mild pain/PALOMINO/temp> 100.4F
Bisacodyl 10 mg 05/09/25 22:47
Bisacodyl 10 Mg Rectal Suppository RECTAL 06/06/25 22:46
[id number] PRN
constipation
Diltiazem HCl 300 mg 05/10/25 08:00 05/10/25 10:39
Diltiazem 300 Mg Extended Release (24 H) Capsule PO 06/07/25 07:59 300 mg
DAILY TANIYA Administration
Sodium Chloride 1,000 mls @ 80 mls/hr 05/09/25 22:47 05/10/25 17:13
Nss IV 1,000 mls
.[id number] TANIYA Administration
Metoprolol Succinate 25 mg 05/10/25 08:00 05/10/25 10:38
Metoprolol 25 Mg Extended Release Tablet PO 06/07/25 07:59 25 mg
DAILY TANIYA Administration
Pantoprazole Sodium 40 mg 05/10/25 10:00 05/10/25 20:07
Pantoprazole Sodium 40 Mg/10 Ml Vial IV 06/07/25 09:59 40 mg
BID TANIYA Administration
Polyethylene Glycol 17 grams 05/09/25 22:47
Polyethylene Glycol Powder 17 Grams Packet PO 06/06/25 22:46
DAILYPRN PRN
constipation
Senna/Docusate Sodium 1 tablet 05/09/25 22:47
Docusate W/Senna (Lisette-Colace) Tablet PO 06/06/25 22:46
BIDPRN PRN
constipation
Sodium Chloride 0 flush 05/09/25 23:00
Sodium Chloride 0.9% (Flush) Syringe IV 06/06/25 22:59
PER PROTOCOL TANIYA
Sodium Chloride 10 ml 05/10/25 10:00 05/10/25 20:06
Sodium Chloride 0.9% (Preservative Free) 10 Ml Vial IV 06/07/25 09:59 10 ml
BID TANIYA Administration
Review of Systems
-
History Source: Patient and Records
Physical Exam
-
General: Well Developed, Well Nourished and No Apparent Distress
HEENT: Moist Mucous Membranes; Negative Jaundice
Cardiology: Normal Sinus Rhythm, S1 and S2
Pulmonary: Clear; Negative Wheezes or Rales
GI: Soft and Normal Bowel Sounds
Musculoskeletal: No Clubbing, No Cyanosis and No Edema
Extremities: No C/C/E
Neurology: Non Focal
Skin: Warm and Dry
Hematologic / Lymphatic: No Lymphadenopathy
Psych: Calm and Intact Judgement/Insight
Labs
Lab Results
WBC 8.1 10^3/uL (4.8-10.8) 05/10/25 07:02
RBC 3.82 10^6/uL (4.20-5.40) L 05/10/25 07:02
Hgb 11.8 g/dL (12.0-16.0) L 05/10/25 07:02
Hct 35.0 % (37.0-47.0) L 05/10/25 07:02
MCV 91.6 fL (81.0-99.0) 05/10/25 07:02
MCH 30.9 pg (27.0-31.0) 05/10/25 07:02
MCHC 33.7 g/dL (33.0-37.0) 05/10/25 07:02
RDW 14.4 % (11.5-14.5) 05/10/25 07:02
Plt Count 251 10^3/uL (130-400) 05/10/25 07:02
MPV 10.4 fL (7.4-10.4) 05/10/25 07:02
Abs Immat Gran (auto) 0.0 10^3/uL (0-0.05) 05/09/25 08:58
Absolute Neuts (auto) 5.1 10^3/uL (1.4-6.5) 05/09/25 08:58
Absolute Lymphs (auto) 2.0 10^3/uL (1.2-3.4) 05/09/25 08:58
Absolute Monos (auto) 0.9 10^3/uL (0.1-0.6) H 05/09/25 08:58
Absolute Eos (auto) 0.1 10^3/uL (0-0.7) 05/09/25 08:58
Absolute Basos (auto) 0.0 10^3/uL (0-0.2) 05/09/25 08:58
Immature Gran % 0.4 % (0-0.5) 05/09/25 08:58
Neutrophils % 62.2 % (42.2-75.2) 05/09/25 08:58
Lymphocytes % 24.8 % (20.5-51.1) 05/09/25 08:58
Monocytes % 11.4 % (1.7-9.3) H 05/09/25 08:58
Eosinophils % 0.7 % (0-6) 05/09/25 08:58
Basophils % 0.5 % (0-2) 05/09/25 08:58
Creatinine 0.6 mg/dL (0.6-1.0) 05/10/25 07:02
Vital Signs
Vital Signs
Temp Pulse Resp BP Pulse Ox
98.0 F 88 16 154/74 97
05/10/25 19:41 05/10/25 19:41 05/10/25 19:41 05/10/25 19:41 05/10/25 19:41
[2025-05-11] VITALS (9 sets, daily range): BP systolic 20–144; BP diastolic 50–73; BMI 26.6
[2025-05-11] MEDS: NSS 1000 IV ×2 (04:57→15:17)
[2025-05-11] MEDS: PROTONIX IV 40 MG IV ×2 (07:38→19:30)
[2025-05-11] MEDS: CARDIZEM CD 300 MG PO (07:38)
[2025-05-11] MEDS: NSS (PRESERVATIVE FREE) 10 ML IV ×2 (07:39→19:30)
--- NOTE | 2025-05-11 07:41 | W.PN.HOSP.TC ---
Today's Communication/Plan
-
Liquid diet.
Pantoprazole.
Continue to hold Eliquis.
Assessment / Plan
Assessment / Plan
Impression:
Patient is 79 years old with history of paroxysmal A-fib, hypertension who presented with dysphagia and significant weight loss with CT abdomen pelvis with concern of esophageal carcinoma with metastasis, GI consulted and plan for EGD.
EGD shows:
Esophagus:
Partially obstructing, likely malignant tumor located at the distal esophagus and extending to the gastroesophageal (GE) junction. Appearance consistent with Siewert type I lesion.
Multiple biopsies obtained and sent for bashir pathology.
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
Stomach:
Ulcerated mass observed at the GE junction upon retroflexion.
Otherwise, stomach appeared normal on both direct and retroflexion views.
Duodenum:
Normal appearance up to the third portion.
Start on clear liquid diet.
Continue IV PPI 40 mg BID.
Hold Eliquis.
may benefit from palliative esophageal stent; to be discussed with Dr. Freitas.
Assessment/plan:
Progressive dysphagia likely secondary to metastatic esophageal cancer
CT chest/abdomen/pelvis shows:
circumferential wall thickening of the distal esophagus, highly suspicious for esophageal carcinoma.
Jackie metastatic disease involving mediastinal, bilateral hilar, distal paraesophageal, gastrohepatic, and retroperitoneal lymph nodes.
Multiple small hepatic metastases noted.
Mild urinary bladder wall thickening; recommend correlation with urinalysis for possible cystitis.
Keep patient NPO.
Continue IV fluids for hydration.
Plan for EGD Friday 05/11
continue PPI.
GI and Oncology consulted.
EGD shows:
Esophagus:
Partially obstructing, likely malignant tumor located at the distal esophagus and extending to the gastroesophageal (GE) junction. Appearance consistent with Siewert type I lesion.
Multiple biopsies obtained and sent for bashir pathology.
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
Stomach:
Ulcerated mass observed at the GE junction upon retroflexion.
Started on clear liquid diet.
Continue IV PPI 40 mg BID.
Hold Eliquis.
may benefit from palliative esophageal stent; GI to discuss with Dr. Freitas.
Paroxysmal atrial fibrillation
Hold Eliquis for procedural requirements.
Continue metoprolol and diltiazem.
Essential hypertension
Hold valsartan/HCTZ.
Normocytic anemia.
Continue to monitor
Hypomagnesemia
Replete and monitor magnesium levels.
DVT prophylaxis
Sequential compression devices (SCDs).
Code Status
Full code.
Diet: CLD
Disposition: Liquid diet.
Pantoprazole.
Continue to hold Eliquis.
Total time spent on today's encounter was 55 minutes which included time spent in counseling the patient/family regarding diagnosis and treatment plan as listed above, goals of care, and symptom management. Case was discussed with nursing staff,
specialists, and care coordinators/case management. All labs and imaging personally reviewed by me. Remainder the time spent in detailed review of previous records, lab data, imaging, and other medical provider documentation.
Part of this note was created using voice recognition system. Occasional wrong word or �sound alike� substitutions may have inadvertently occurred due to the inherent limitations of voice recognition software. If noted kindly bring it to my
attention for correction.
Anticipated Discharge: > 48 hours
Subjective/Interval History
-
Date of Service: May 11, 2025
Patient seen and examined after EGD.
No chest pain or shortness of breath.
Objective Data
-
Labs:
Laboratory Results
05/11/25
07:29
WBC Pending
Hgb Pending
Hct Pending
Plt Count Pending
Sodium Pending
Potassium Pending
Chloride Pending
Carbon Dioxide Pending
BUN Pending
Creatinine Pending
Glucose Pending
Calcium Pending
Vital Signs:
Vital Signs
Temp Pulse Resp BP Pulse Ox
98 F 77 16 132/68 99
05/11/25 07:30 05/11/25 07:30 05/11/25 07:30 05/11/25 07:30 05/11/25 07:30
I&O
05/10/25 05/11/25 05/12/25
06:59 06:59 06:59
Intake Total 1120 / 1120
Balance 1120 / 1120
Physical Exam
-
General: Well Developed, Well Nourished, No Apparent Distress and Comfortable
HEENT: Normocephalic, Atraumatic, Moist Mucous Membranes, No Ptosis, PERRLA and Nose Appears Normal
Respiratory: Clear to Auscultation and Non Labored Respirations
Cardiac: Regular Rhythm and S1/S2
Breast: Deferred by me
GI: Soft, Nontender, Nondistended and Normal Bowel Sounds
Genito-urinary: No Costovertebral Tender
Musculoskeletal: No Clubbing, No Cyanosis and No Edema
Skin: Warm
Neuro: Awake, Alert, Oriented, AO x 3 and No Motor Deficits
Psych: Calm
Data Reviewed
-
Diagnostic Radiology: Image personally visualized and interpreted and Report Reviewed by me
CT Scan: Image personally visualized and interpreted and Report Reviewed by me
Ultrasound: Image personally visualized and interpreted and Report Reviewed by me
MRI: Image personally visualized and interpreted and Report Reviewed by me
Medical Tests (Nuc Med, Echo etc): Image personally visualized and interpreted and Report Reviewed by me
Labs: Labs Reviewed by me
Old Records: Reviewed
[2025-05-11] MEDS: TOPROL XL 25 MG PO (07:45)
[2025-05-11 08:14] LABS: Hematocrit 33.6 % (37.0-47.0); Hemoglobin 11.2 g/dL (12.0-16.0); Mean Corp Hgb Conc. 33.3 g/dL (33.0-37.0); Mean Corpuscular Volume 91.3 fL (81.0-99.0); Nucleated Red Blood Cells % 0 %; Platelet Count 232 10^3/uL (130-400); Red Cell Dist. Width 14.5 % (11.5-14.5)
[2025-05-11 08:41] LABS: Blood Urea Nitrogen 12 mg/dl (7-17); Calcium 8.6 mg/dl (8.4-10.2); Carbon Dioxide 20 mmol/L (22-30); Chloride 105 mmol/L (98-107); Estimated Creatinine Clearance 70 ml/min; Glucose 91 mg/dl (70-99); Magnesium 1.9 mg/dl (1.6-2.3); Potassium 3.5 mmol/L (3.5-5.1); Sodium 139 mmol/L (135-145); eGFR > 60.00
--- NOTE | 2025-05-11 09:01 | W.PN.ONC2 ---
Today's Communication / Plan
-
.
Impression
Impression
Distal esophageal mass
Unintentional weight loss
dysphagia
Possible liver mets
PAF on DOAC
Plan
Plan
Plan for EGD is noted, await path.
Consider alternate feeding for nutritional support
Optimize performance status
Subjective/Objective
Subjective
afebrile, no hypoxia or hypotension
denies pain
feeling hungry
Vital Signs:
Vital Signs
Temp Pulse Resp BP Pulse Ox
98 F 77 16 132/68 99
05/11/25 07:30 05/11/25 07:30 05/11/25 07:30 05/11/25 07:30 05/11/25 07:30
Lab Results:
Laboratory Data
WBC 7.8 10^3/uL (4.8-10.8) 05/11/25 07:29
Hgb 11.2 g/dL (12.0-16.0) L 05/11/25 07:29
Plt Count 232 10^3/uL (130-400) 05/11/25 07:29
eGFR > 60.00 05/11/25 07:29
Physical Exam
HEENT: Moist Mucous Membranes; No Jaundice
Pulmonary: Other (unlabored)
GI: Soft
Extremities: Pulses Present
Neuro: Non Focal
[2025-05-11 12:05] LABS: Ferritin 155.0 ng/ml (11.1-264.0)
[2025-05-11 12:37] LABS: Folate 18.7 ng/ml (2.76-20); Vitamin B12 > 1000 pg/ml (239-931)
--- NOTE | 2025-05-11 18:05 | CON.GS ---
Consultation
-
Date/Time Consultation Requested: 05/11/2025 4 PM
Date/Time Consultation Performed: 05/11/2025 5 PM
Requesting Provider: Hospitalist
Performing Provider: Dr. Rowland
Reason for Consultation: ' Esophageal mass'
Medical History
-
Chief Complaint: Dysphagia
History of Present Illness:
This is an 79-year-old female with a history of hypertension, hyperlipidemia, atrial fibrillation on Eliquis (last dose 05/08) who presents to the ED with worsening dysphagia, CT imaging concerning for esophageal carcinoma with mets to the chest and
liver. GI scoped the patient today and found a large fungating mass in the distal esophagus which was biopsied.
Today the patient is in good spirits, hard of hearing but states that she actually tolerated clears after the procedure for the first time in a long time without issue.
Past Medical History
Past Medical History: Reviewed & Noncontributory
Past Surgical History: None
Social History
Tobacco: Non-Smoker
Alcohol: None
Drug: None
Personal:
Living: With Family
Family History
Family History: Reviewed & Not Pertinent
Allergies / Home Medications
Allergy/AdvReac Type Severity Reaction Status Date / Time
codeine Allergy upset Verified 01/09/25 08:06
stomach
lisinopril Allergy COUGH Verified 01/09/25 08:06
mold Allergy congestion Verified 01/09/25 08:06
oxycodone (Oxycodone) Allergy Nausea Verified 01/09/25 08:06
sotalol (Sotalol) Allergy cough, Verified 01/09/25 08:06
nausea
verapamil (Verapamil) Allergy uncontrollable Verified 01/09/25 08:06
cough
�Medication �Instructions �Recorded �Confirmed �Type
diltiazem HCl 300 mg 300 mg PO DAILY Heart Disease/BP 01/25/18 05/11/25 History
capsule,extended release 24 hr
(Cartia XT)
apixaban 5 mg tablet (Eliquis) 5 mg PO BID Blood Clot 01/02/25 05/11/25 History
Prevention/Tx
cholecalciferol (vitamin D3) 50 2,000 mcg PO DAILY Supplement 01/02/25 05/11/25 History
mcg (2,000 unit) capsule (D3-2000)
losartan 100 1 tab PO DAILY Blood Pressure 01/02/25 05/11/25 History
mg-hydrochlorothiazide 25 mg
tablet (Hyzaar)
metoprolol succinate 25 mg 25 mg PO DAILY Blood Pressure 01/02/25 05/11/25 History
tablet,extended release 24 hr
omega 1-nfv-dah-fish oil 1,200 mg 2 cap PO DAILY Supplement 01/02/25 05/11/25 History
(144 mg-216 mg) capsule (Fish Oil)
multivitamin 1 tab PO DAILY Supplement 01/09/25 05/11/25 History
econazole nitrate 1 % topical cream 1 applic topical BID Skin Issues 05/09/25 05/11/25 History
estradiol 0.01% (0.1 mg/gram) 1 g vaginal TUFR Hormonal Agent 05/09/25 05/11/25 History
vaginal cream
GennaMD 1 cap PO DAILY Supplement 05/11/25 05/11/25 History
omeprazole 20 mg capsule,delayed 20 mg PO DAILY Gastrointestinal 05/11/25 05/11/25 History
release Issue
potassium chloride 20 mEq 20 meq PO DAILY Electrolyte 05/11/25 05/11/25 History
tablet,extended release(part/cryst) Repletion
Review of Systems
-
All other systems: Negative unless noted
A 10 point review of systems was completed, and was negative except as per HPI.
Physical Exam
Vital Signs
Temp Pulse Resp BP Pulse Ox
97.7 F 72 16 136/65 99
05/11/25 14:51 05/11/25 14:51 05/11/25 14:51 05/11/25 14:51 05/11/25 14:51
05/10/25 05/11/25 05/12/25
06:59 06:59 06:59
Actual Weight 75.795 kg
Body Mass Index (BMI) 26.6
Lab Results
05/11/25 07:29
05/11/25 07:29
WBC 7.8 10^3/uL (4.8-10.8) 05/11/25 07:29
Hgb 11.2 g/dL (12.0-16.0) L 05/11/25:
Hct 33.6 % (37.0-47.0) L 05/11/25:
Plt Count 232 10^3/uL (130-400) 05/11/25:29
Abs Immat Gran (auto) 0.0 10^3/uL (0-0.05) 05/11/25:29
Neutrophils % 69.8 % (42.2-75.2) 05/11/25 07:29
Physical Exam
General: Well Developed
HEENT: Normocephalic
Respiratory: Clear
GI: Soft and Non Tender
Data Reviewed
-
CT Scan: Image Personally Visualized and interpreted, Report Reviewed by me, Discussed with Physician, Discussed with Patient and Discussed with Family
Labs: Labs Reviewed by me and Discussed with Physician
Total Time Spent with Patient (in minutes): 25
Assessment / Plan
-
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 Currently off her Eliquis which he takes for atrial fibrillation. General surgery consulted for
feeding tube placement.
Given the likely palliative nature of any further intervention, would favor placing G-tube over J-tube as the latter tends to have more complications (pain, leaking, longer recovery).
I will discuss further with patient and in the morning.
N.p.o. at midnight ahead of possible lap feeding tube placement tomorrow.
I spent 75 minutes in total for the care of this patient today including direct patient care and counseling, reviewing labs, imaging, coordination of care, as well as documentation.
[2025-05-12] VITALS (9 sets, daily range): BP systolic 141–167; BP diastolic 71–93
[2025-05-12 07:01] LABS: Hematocrit 36.6 % (37.0-47.0); Hemoglobin 12.2 g/dL (12.0-16.0); Mean Corp Hgb Conc. 33.3 g/dL (33.0-37.0); Mean Corpuscular Volume 92.7 fL (81.0-99.0); Platelet Count 255 10^3/uL (130-400); Red Cell Dist. Width 14.5 % (11.5-14.5)
[2025-05-12 07:24] LABS: Blood Urea Nitrogen 11 mg/dl (7-17); Calcium 8.7 mg/dl (8.4-10.2); Carbon Dioxide 21 mmol/L (22-30); Chloride 107 mmol/L (98-107); Estimated Creatinine Clearance 70 ml/min; Glucose 121 mg/dl (70-99); Potassium 3.3 mmol/L (3.5-5.1); Sodium 137 mmol/L (135-145); eGFR > 60.00
[2025-05-12] MEDS: TOPROL XL 25 MG PO (07:36)
[2025-05-12] MEDS: CARDIZEM CD 300 MG PO (07:36)
[2025-05-12] MEDS: NSS (PRESERVATIVE FREE) 10 ML IV ×2 (07:37→19:53)
[2025-05-12] MEDS: PROTONIX IV 40 MG IV ×2 (07:37→19:52)
[2025-05-12] MEDS: KCL ELIXIR 40 MEQ PO (08:04)
--- NOTE | 2025-05-12 09:22 | W.PN.GI.CBS2 ---
Today's Communication / Plan
-
Placement of G-tube per surgery and palliative chemo per oncology
Assessment / Plan
-
Ms. Akers is a 79 y.o female with a past medical history of HTN, HLD, chronic LBP, moderate MR, and A Fib (on eliquis) who presented to the ED due to concern for worsening dysphagia over the past month. Found to have CT imaging concerning for
esophageal carcinoma for which GI has been consulted for further evaluation and management.
#Esophageal Dysphagia
#C/f Esophageal Malignancy on CT Imaging
#Metastatic Lymphadenopathy
#Hepatic Lesions, c/f Mets
#Unintentional Weight Loss (50 lbs)
Impression: Patient presenting with chronic, worsening esophageal dysphagia to both liquids and solids along with a 50 pound unintentional weight loss. CT imaging unfortunately revealed circumferential wall thickening of the distal esophagus which
was highly suspicious for esophageal carcinoma. Additionally, there was concern for ilsa metastatic disease in the chest and upper abdomen along with multiple small hepatic lesions concerning for hepatic mets. This is all highly concerning for
metastatic esophageal cancer and given location and distal esophagus, likely esophageal adenocarcinoma.
05/11/2025 EGD
Impression:
- Partially obstructing, likely malignant esophageal tumor was found
at the distal esophagus and extending to the GE junction, consistent
with Siewert type I lesion. Multiple biopsies obtained and sent for
bashir.
- Malignant-appearing esophageal stricture secondary to patient's
mass. The scope was able to pass with mild resistance.
- Ulcerated mass found at GE junction upon retroflexion in the
stomach. Otherwise, normal stomach on direct and retroflexion views.
- Normal examined duodenum up to the third portion.
- The examination was otherwise normal.
Assessment and plan
Esophageal mass noted on endoscopy yesterday and metastatic disease noted on CT chest, abdomen and pelvis most likely has metastatic esophageal carcinoma- pathology is pending. Noted input from oncology and surgery plan is to have a surgical G-tube
placement for nutrition and subsequent palliative chemo per oncology. She is currently tolerating clear liquids. Could consider possible placement of esophageal stent will defer this to oncology if needed in the future versus radiation to shrink
tumor to help with symptoms of dysphagia. Currently no bleeding. GI will sign off and will be available as needed
Subjective
Subjective
Date of Service: May 12, 2025
Patient currently denies any abdominal pain. She is tolerating some clear liquids and no nausea or vomiting was reported.
Objective
Data Reviewed
Laboratory Data:
Laboratory Results
05/12/25 06:34
05/12/25 06:34
Laboratory Results
Phosphorus 4.2 mg/dl (2.5-4.5) 05/10/25 07:02
Magnesium 1.9 mg/dl (1.6-2.3) 05/11/25 07:29
Total Bilirubin 1.2 mg/dl (0.2-1.3) 05/09/25 13:49
AST 39 U/L (14-36) H 05/09/25 13:49
ALT 32 U/L (0-35) 05/09/25 13:49
Alkaline Phosphatase 74 U/L (38-126) 05/09/25 13:49
Vital Signs and I&O:
Vital Signs
Temp Pulse Resp BP Pulse Ox
98.3 F 72 18 152/79 99
05/12/25 07:43 05/12/25 07:43 05/12/25 07:43 05/12/25 07:43 05/12/25 07:43
I&O
05/11/25 05/12/25 05/13/25
06:59 06:59 06:59
Intake Total 1120 / 1120 480 / 480
Balance 1120 / 1120 480 / 480
Physical Exam
Physical Exam
Cardiology: Normal Sinus Rhythm
Pulmonary: Clear
GI: Soft, Non Distended, Non Tender and Normal Bowel Sounds
--- NOTE | 2025-05-12 10:02 | W.SUR.PREOP ---
Pre-Operative Surgical Note
-
I have examined this patient prior to the performance of the scheduled procedure.
The patient's condition is unchanged from the time of the current History and
Physical and the patient is able to undergo the scheduled procedure.
--- NOTE | 2025-05-12 11:09 | W.PN.HOSP.TC ---
Today's Communication/Plan
-
PEG tube today
Continue to hold Eliquis.
Assessment / Plan
Assessment / Plan
Impression:
Patient is 79 years old with history of paroxysmal A-fib, hypertension who presented with dysphagia and significant weight loss with CT abdomen pelvis with concern of esophageal carcinoma with metastasis, GI consulted and plan for EGD.
EGD shows:
Esophagus:
Partially obstructing, likely malignant tumor located at the distal esophagus and extending to the gastroesophageal (GE) junction. Appearance consistent with Siewert type I lesion.
Multiple biopsies obtained and sent for bashir pathology.
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
Stomach:
Ulcerated mass observed at the GE junction upon retroflexion.
Otherwise, stomach appeared normal on both direct and retroflexion views.
Duodenum:
Normal appearance up to the third portion.
Start on clear liquid diet.
Continue IV PPI 40 mg BID.
Hold Eliquis.
may benefit from palliative esophageal stent; surgery consulted for feeding tube
Assessment/plan:
Progressive dysphagia likely secondary to metastatic esophageal cancer
CT chest/abdomen/pelvis shows:
circumferential wall thickening of the distal esophagus, highly suspicious for esophageal carcinoma.
Jackie metastatic disease involving mediastinal, bilateral hilar, distal paraesophageal, gastrohepatic, and retroperitoneal lymph nodes.
Multiple small hepatic metastases noted.
Mild urinary bladder wall thickening; recommend correlation with urinalysis for possible cystitis.
Keep patient NPO.
Continue IV fluids for hydration.
Plan for EGD Friday 05/11
continue PPI.
GI and Oncology consulted.
EGD shows:
Esophagus:
Partially obstructing, likely malignant tumor located at the distal esophagus and extending to the gastroesophageal (GE) junction. Appearance consistent with Siewert type I lesion.
Multiple biopsies obtained and sent for bashir pathology.
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
Stomach:
Ulcerated mass observed at the GE junction upon retroflexion.
Started on clear liquid diet.
Continue IV PPI 40 mg BID.
Hold Eliquis.
may benefit from palliative esophageal stent; GI to discuss with Dr. Freitas.
05/12
Surgery team consulted for feeding
Paroxysmal atrial fibrillation
Hold Eliquis for procedural requirements.
Continue metoprolol and diltiazem.
Essential hypertension
Hold valsartan/HCTZ.
Normocytic anemia.
Continue to monitor
Hypomagnesemia
Replete and monitor magnesium levels.
DVT prophylaxis
Sequential compression devices (SCDs).
Code Status
Full code.
Diet: NPO
Family communication: Discussed with
Disposition: PEG tube today
Continue to hold Eliquis.
Total time spent on today's encounter was 55 minutes which included time spent in counseling the patient/family regarding diagnosis and treatment plan as listed above, goals of care, and symptom management. Case was discussed with nursing staff,
specialists, and care coordinators/case management. All labs and imaging personally reviewed by me. Remainder the time spent in detailed review of previous records, lab data, imaging, and other medical provider documentation.
Part of this note was created using voice recognition system. Occasional wrong word or �sound alike� substitutions may have inadvertently occurred due to the inherent limitations of voice recognition software. If noted kindly bring it to my
attention for correction.
Anticipated Discharge: > 48 hours
Subjective/Interval History
-
Date of Service: May 12, 2025
Patient seen and examined at bedside, denies any chest pain or shortness of breath, no abdominal pain, no nausea, no vomiting, no diarrhea or constipation.
Objective Data
-
Labs:
Laboratory Results
05/12/25
06:34
WBC 9.5
Hgb 12.2
Hct 36.6 L
Plt Count 255
Sodium 137
Potassium 3.3 L
Chloride 107
Carbon Dioxide 21 L
BUN 11
Creatinine 0.6
Glucose 121 H
Calcium 8.7
Vital Signs:
Vital Signs
Temp Pulse Resp BP Pulse Ox
98.3 F 72 18 152/79 99
05/12/25 07:43 05/12/25 07:43 05/12/25 07:43 05/12/25 07:43 05/12/25 07:43
I&O
05/11/25 05/12/25 05/13/25
06:59 06:59 06:59
Intake Total 1120 / 1120 480 / 480
Balance 1120 / 1120 480 / 480
Physical Exam
-
General: Well Developed, Well Nourished, No Apparent Distress and Comfortable
HEENT: Normocephalic, Atraumatic, Moist Mucous Membranes, No Ptosis, PERRLA and Nose Appears Normal
Respiratory: Clear to Auscultation and Non Labored Respirations
Cardiac: Regular Rhythm and S1/S2
Breast: Deferred by me
GI: Soft, Nontender, Nondistended and Normal Bowel Sounds
Genito-urinary: No Costovertebral Tender
Musculoskeletal: No Clubbing, No Cyanosis and No Edema
Skin: Warm
Neuro: Awake, Alert, Oriented, AO x 3 and No Motor Deficits
Psych: Calm
--- NOTE | 2025-05-12 12:50 | CM ---
OR today for PEG
tt hospitalist for therapy orders
PLAN: TBD, CM to continue to follow for needs
--- NOTE | 2025-05-12 13:51 | W.PN.ONC2 ---
Today's Communication / Plan
-
I called pt . We reviewed imaging. We also reviewed that in general esophageal cancer (suspected since still awaiting pathology from biopsy) can be treated with chemotherapy/immunotherapy with palliative intent. He reports that he and
have discussed GOC which are restorative to pursue antineoplastic treatments.
Impression
Impression
Distal esophageal mass
Unintentional weight loss
dysphagia
Possible liver and ilsa mets
PAF on DOAC
Plan
Plan
s/p EGD is noted, await path.
PEG planned for alternative nutrition
Recommend palliative esophageal stent - will reach out to Dr. Freitas
Optimize performance status and nutritional status
Subjective/Objective
Subjective
off unit
Vital Signs:
Vital Signs
Temp Pulse Resp BP Pulse Ox
97.7 F 68 16 141/73 99
05/12/25 11:19 05/12/25 11:19 05/12/25 11:19 05/12/25 11:19 05/12/25 11:19
Lab Results:
Laboratory Data
WBC 9.5 10^3/uL (4.8-10.8) 05/12/25 06:34
Hgb 12.2 g/dL (12.0-16.0) 05/12/25 06:34
Plt Count 255 10^3/uL (130-400) 05/12/25 06:34
eGFR > 60.00 05/12/25 06:34
Orders
Orders
Orders From Last 24 Hours
05/11/25 15:39
Consult Surgery [SURGICAL CONSULT] Routine
--- NOTE | 2025-05-12 15:05 | PN.CDI ---
CDI
- -
CDI:
Physician Documentation Request
Admit Date: 05/09/25 17:49
Dear Doctor Hubert,
Patient was admitted with esophageal dysphagia.
05/11 Nutrition note, 'CBW: 167 lbs 1.6 oz BMI 26.6 overweight range 05/09. Pts weight previous hospital visit listed as 211 lbs 01/09 reflective of a 20% weight loss in < 6 months significant per ASPEN/AND.
With weight loss of > 10% in 6 months and < 75% estimated needs > 1 month pt meets AND/ASPEN criteria or moderate protein calorie malnutrition of chronic illness.
Please provide in your note the diagnosis associated with the above nutritional findings and your assessment:
Moderate protein calorie malnutrition of chronic illness
Other (please specify)
[facility] Criteria ([facility] Hospitalist 2017)
2 or more criteria must be present for either
non severe or severe malnutrition
Note that the criteria differs related to the
presence of an acute or chronic illness
Chronic Illness
Energy Intake Non Severe: <75% for >1 month
Severe: <75% for >1 month
Weight Loss Non Severe: 5% over 1 month
7.5% over 3 months
10% over 6 months
20% over 1 year
Severe: >5% over 1 month
>7.5% over 3 months
>10% over 6 months
>20% over 1 year
Body Fat Non Severe: Mild Loss
Severe: Severe Loss
Muscle Mass Non Severe: Mild Loss
Severe: Severe Loss
Fluid Accumulation Non Severe: Mild Accumulation
Severe: Moderate to severe
accumulation
Reduced Toolsmith Strength Non Severe: N/A
Severe: Measurably reduced
Use of terms such as suspected, likely, concern for, or probable (associated with a specific diagnosis that is being evaluated, monitored, or treated as if it exists) are acceptable and can be coded in the inpatient setting, when documented at the
time of discharge.
Thank you,
Mary Anne PATEL,RN,CCDS
CDI Specialist
Available via tiger text
Please use your independent medical judgment in providing your response.
--- NOTE | 2025-05-12 16:04 | W.IMMPOSTOP ---
Surgical Immed Post Op Note
-
Primary Surgeon: Tejas Rowland MD
Assisting Surgeon: None
Pre-op Diagnosis: Esophageal cancer, need for feeding access
Post-op Diagnosis: Same
Procedure Performed:
Laparoscopic G-tube placement
Anesthesia Type: General
Specimen / Cultures: None
Estimated Blood Loss: 11 cc
Complications: None
Operative Findings: After 3 failed Veress needle entries, the abdomen was entered using a right upper quadrant Optiview entry. After confirming safe entry into the abdomen and that our Veress needle had not even penetrated the posterior rectus
sheath, 2 additional trocars were placed in the right upper and left upper quadrants. There were adhesions to the upper midline to her previous mesh which were taken down with electrocautery. There was also a tongue of omentum into the diaphragm,
this was carefully peeled down but it was apparent that this was a pericardial window so was left in place. We then identified the greater curvature of the stomach and identified our G-tube site in the left upper quadrant. After marking our
planned incision, x4 0 Surgilon sutures were passed around the planned insertion point in the body of the stomach and passed up to the abdominal wall using a Threadbox Ocasio device. Enterotomy was made on the stomach and dilated, we then used the 5
mm trocar to hanna the abdominal wall and passed into the stomach which I did easily. The 16 Lao ENFit G-tube was then passed through the abdominal wall into the stomach. Each port was flushed with 5 cc of water and the balloon was dilated up
to 5 cc. The enterotomy was tight to the tubing so I did not feel the need to place an additional pursestring suture. The Surgilon sutures were tied tight, and the balloon was pulled back such that it was snug against the stomach to the abdominal
wall. This measured 4 cm at the skin. The abdomen was desufflated and the right upper quadrant trocars were removed under direct visualization. The port sites were closed with 4-0 Monocryl, the G-tube insertion site was narrowed with a single 4-0
Monocryl stitch. All port sites and stab incisions were covered with glue.
POST OP PLAN:
Imaging: None
Labs: Routine AM
Diet: Okay for sips of clears as tolerated. Okay for liquid meds through the med port on the G-tube, please flush with 10 cc of water after each use. Okay to start trickle tube feeds tomorrow, and advance to goal as needed.
Analgesia: Tylenol 650mg q6 Sydni, Dilaudid 0.5mg q2h PRN
Neuro/vascular checks: Per unit protocol
AC/AP: Hold Therapeutic AC, Ok for DVT PPx
Activity: Ad Kathy
Wound/Incisions/Drains: Routine
Abx: None
Dispo: RNF
--- NOTE | 2025-05-12 16:12 | OR.RPT ---
Operative Report
Operative Report
Patient Name: Rocio Akers
: 1945
Date of Operation: 05/12/2025
Preoperative Diagnosis: Esophageal cancer, need for enteral feeding access
Postoperative Diagnosis: Same
Procedure(s):
Laparoscopic gastrostomy tube placement (Sam technique)
Surgeon(s):
Dr. Rowland
Manager Care(s):
ESVIN Cedillo
Anesthesia: General
Estimated Blood Loss: 11 cc
Urine Output: None
Drains/Lines/Implants: 14 Mosotho J-tube with 5 cc of sterile water, 4 cm at the skin
Specimens:
None
HPI/Surgical Indications:
This is an 79-year-old female with history of prior epigastric hernia repair with mesh who presented to our hospital with dysphagia, nausea vomiting and found to have a near obstructing esophageal mass concerning for adenocarcinoma with likely mets
to the liver and lymph nodes. Risks/Benefits/Alternatives were discussed at length, and the patient agreed to proceed with surgery.
Operative Findings: After 3 failed Veress needle entries, the abdomen was entered using a right upper quadrant Optiview entry. After confirming safe entry into the abdomen and that our Veress needle had not even penetrated the posterior rectus
sheath, 2 additional trocars were placed in the right upper and left upper quadrants. There were adhesions to the upper midline to her previous mesh which were taken down with electrocautery. There was also a tongue of omentum into the diaphragm,
this was carefully peeled down but it was apparent that this was a pericardial window so was left in place. We then identified the greater curvature of the stomach and identified our G-tube site in the left upper quadrant. After marking our
planned incision, x4 0 Surgilon sutures were passed around the planned insertion point in the body of the stomach and passed up to the abdominal wall using a OrderWithMe device. Enterotomy was made on the stomach and dilated, we then used the 5
mm trocar to hanna the abdominal wall and passed into the stomach which I did easily. The 16 Mosotho ENFit G-tube was then passed through the abdominal wall into the stomach. Each port was flushed with 5 cc of water and the balloon was dilated up
to 5 cc. The enterotomy was tight to the tubing so I did not feel the need to place an additional pursestring suture. The Surgilon sutures were tied tight, and the balloon was pulled back such that it was snug against the stomach to the abdominal
wall. This measured 4 cm at the skin. The abdomen was desufflated and the right upper quadrant trocars were removed under direct visualization. The port sites were closed with 4-0 Monocryl, the G-tube insertion site was narrowed with a single 4-0
Monocryl stitch. All port sites and stab incisions were covered with glue.
Procedure Description:
The patient was brought to the Operating Room and placed in the supine position. IV antibiotics were infused and Venodyne stockings placed. Following uneventful induction of general endotracheal anesthesia, the abdomen was prepped and draped in
the usual sterile fashion. We initially attempted to enter the abdomen using a left subcostal Veress technique but after 3 failed passes we converted to a right upper quadrant Optiview entry with a 5 mm port. Pneumoperitoneum to 15 mmHg was
established and we confirmed that no injury occurred upon entry. We also confirmed that the Veress had not penetrated the posterior rectus sheath from her previous attempts and that there was no injury in this area either. 2 additional 5 mm ports
were placed in the right upper and left upper quadrants. We did note omental adhesions to her previous epigastric hernia repair. The mesh patch appeared to be in a good position and not folded. The omental attachments were removed carefully
dissected off using cautery and blunt dissection. There was a tongue of the omentum extending superiorly towards the diaphragm which was carefully cauterized however this appeared to be unintentional pericardial window likely from her previous
surgeries so this was left in place.
The greater curvature of the stomach was identified as well as our planned G-tube insertion site which was well away from the costal margin as well as the midline mesh. Then using x4 0 Surgilon sutures four full-thickness bites of the body of the
stomach were taken in close proximity around the planned G-tube insertion site and tacked to the abdominal wall using a Ld Ocasio. An enterotomy was made into the stomach and dilated using the 5 mm trocar which had been inserted through the
abdominal wall into the opening. We tied the posterior, superior and inferior sutures tethering in place and then passed a 16 Mosotho balloon G-tube through the abdominal wall opening into the stomach. The mid port and feeding ports were flushed
with water and then 5 cc of sterile water was used to insufflate the balloon. All of this appeared to be functioning well. The anterior suture was then tied completing the Sam gastrotomy. I elected not to put a pursestring suture around the
tube as the opening appeared to be already tight to the tube. We then watched the right upper quadrant ports be removed under direct visualization and pneumoperitoneum was evacuated. The skin around our gastrostomy tube site was narrowed using a
4-0 Monocryl. Similarly, the 3 port sites were closed with 4-0 Monocryl. We then closed all of her incisions with glue and after allowing them to dry, placed a drain sponge and tightened the bumper of the G tube to 4 cm at the skin. Overall, the
patient tolerated the procedure well and was taken to the Recovery Room postoperatively in stable condition.
I was the attending physician and performed the procedure with assistance of the PA above. Their assistance was required due to the complexity of the procedure. During the procedure they assisted with port placement, instrument and needle
exchanges, and closure of the wound. I was present for all portions of the case.
Tejas Rowland MD
--- NOTE | 2025-05-12 23:49 | W.PN.UPDATE ---
Addendum entered and electronically signed by MARTA Elliott 05/13/25 02:34:
UA indicative of UTI. Start rocephin and wait until cultures
Original Note:
Update Note
Progress Note Update
pt c/o urinary frequency and voiding only small amts. PVR 0
Will check ua
[2025-05-13] VITALS (9 sets, daily range): BP systolic 132–157; BP diastolic 67–101; PULSE 84; O2SAT 99
--- NOTE | 2025-05-13 | PTCARENOTE ---
Pt frequently calling to use bedside commode to urinate. Pt only able to urinate very small amounts. PVR of 0. MARTA Jay notified. Urinalysis ordered. Plan of care ongoing.
[2025-05-13 01:19] LABS: Urine Character Slightly Cloudy (Clear)
[2025-05-13 01:47] LABS: Urine Red Blood Cell >100 /HPF (0-2); Urine White Cell >100 /HPF (0-5)
[2025-05-13] MEDS: ROCEPHIN 1000 MG IV (03:25)
[2025-05-13] MEDS: STERILE WATER FOR INJECTION 10 ML IV (03:27)
[2025-05-13 07:58] LABS: Hematocrit 32.4 % (37.0-47.0); Hemoglobin 11.1 g/dL (12.0-16.0); Mean Corp Hgb Conc. 34.3 g/dL (33.0-37.0); Mean Corpuscular Volume 90.8 fL (81.0-99.0); Platelet Count 206 10^3/uL (130-400); Red Cell Dist. Width 14.5 % (11.5-14.5)
[2025-05-13 08:06] LABS: Blood Urea Nitrogen 12 mg/dl (7-17); Calcium 8.7 mg/dl (8.4-10.2); Carbon Dioxide 24 mmol/L (22-30); Chloride 106 mmol/L (98-107); Estimated Creatinine Clearance 70 ml/min; Glucose 142 mg/dl (70-99); Potassium 3.5 mmol/L (3.5-5.1); Sodium 136 mmol/L (135-145); eGFR > 60.00
[2025-05-13] MEDS: TOPROL XL 25 MG PO (08:51)
[2025-05-13] MEDS: NSS (PRESERVATIVE FREE) 10 ML IV ×2 (08:51→20:17)
[2025-05-13] MEDS: CARDIZEM CD 300 MG PO (08:51)
[2025-05-13] MEDS: PROTONIX IV 40 MG IV ×2 (08:52→20:17)
--- NOTE | 2025-05-13 09:16 | W.PN.GS2 ---
Today's Communication / Plan
-
Okay to start trickle tube feeds. Watch for refeeding syndrome.
Assessment / Plan
-
This is an 79-year-old female who presents with dysphagia found to have a near obstructing distal esophageal mass with likely cancer with imaging concerning for mets to the lymph nodes and liver. POD #1 laparoscopic G-tube. Doing well, expected
postoperative course.
Okay for sips of clears as tolerated.
Begin tube feeds, would start trickle rate and ramp up to goal. Watch for refeeding.
Okay to restart her Eliquis on 05/15/2025 at her usual dose and time.
Begin VNA set up/tube feeds for home.
Time Spent
Total Time Spent with Patient (in minutes): 20
Subjective Data
-
Date of Service: May 13, 2025
Interval Events:
No acute events overnight but was complaining of some urinary frequency/urgency and was started on antibiotics for UTI. Denies any abdominal pain from her port sites or feeding tube site.
Objective Data
-
Intake and Output
05/12/25 05/13/25 05/14/25
06:59 06:59 06:59
Intake Total 480 / 480 50 / 50
Balance 480 / 480 50 / 50
Intake:
Oral fluids 480 / 480
IV fluids (Total) 50 / 50
normosol 50 / 50
Other:
Number of approximated SMALL 8
amounts of urine
Number of approximated MODERATE 3 3
amounts of urine
Number of approximated LARGE 2
amounts of urine
Vital Signs
Temp Pulse Resp BP Pulse Ox
97.6 F 91 18 157/82 98
05/13/25 07:30 05/13/25 07:30 05/13/25 07:30 05/13/25 07:30 05/13/25 07:30
Lab Results
05/13/25 07:01
05/13/25 07:01
Calcium 8.7 mg/dl (8.4-10.2) 05/13/25 07:01
Phosphorus 4.2 mg/dl (2.5-4.5) 05/10/25 07:02
Magnesium 1.9 mg/dl (1.6-2.3) 05/11/25 07:29
Total Bilirubin 1.2 mg/dl (0.2-1.3) 05/09/25 13:49
AST 39 U/L (14-36) H 05/09/25 13:49
ALT 32 U/L (0-35) 05/09/25 13:49
Alkaline Phosphatase 74 U/L (38-126) 05/09/25 13:49
Total Protein 7.9 g/dl (6.3-8.2) 05/09/25 13:49
Albumin 4.6 g/dl (3.5-5.0) 05/09/25 13:49
Physical Exam
-
GENERAL/NEURO: Awake, Alert, no distress
CHEST: Unlabored breathing on RA
ABDOMEN: Soft, Non-Tender, Non-Distended, incisions clean dry and intact. Glue in place. Feeding tube bumper loosened to 4 cm and a drain sponge placed.
Patient has a sheppard catheter: No
Patient has a central line: No
--- NOTE | 2025-05-13 09:39 | CM ---
Peg tube placed . Will start tube feedings today .
As per [employer] Runner Jevity 1.5 .
TF start slow today
PT OT ordered postop .
PLAN Discharge planing ongoing AWil need PT OT evals
Plan will include Tube feedings
--- NOTE | 2025-05-13 11:10 | W.PN.UPDATE ---
Update Note
Progress Note Update
Brief GI Update Note:
Pathology from distal esophageal mass with poorly differentiated adenocarcinoma with ulcerated fragments, in keeping with distal esophageal adenocarcinoma given location of mass. Discussed with patient this morning at bedside. Addressed all
questions/concerns. Defer to Oncology for ongoing staging/management as well as treatment. Updated primary IM team as well.
Please see prior progress note for additional recommendations. Recontact GI with any questions/concerns.
--- NOTE | 2025-05-13 11:18 | W.PN.HOSP.TC ---
Addendum entered and electronically signed by Terri Gaspar MD 05/14/25 12:16:
Acute UTI.
Urine culture shows E. coli.
Sensitive to Rocephin.
Continue Rocephin for now
Original Note:
Today's Communication/Plan
-
Start tube feeding today.
Clear liquid
Assessment / Plan
Assessment / Plan
Impression:
Patient is 79 years old with history of paroxysmal A-fib, hypertension who presented with dysphagia and significant weight loss with CT abdomen pelvis with concern of esophageal carcinoma with metastasis, GI consulted and plan for EGD.
EGD shows:
Esophagus:
Partially obstructing, likely malignant tumor located at the distal esophagus and extending to the gastroesophageal (GE) junction. Appearance consistent with Siewert type I lesion.
Multiple biopsies obtained and sent for [facility] pathology.
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
Stomach:
Ulcerated mass observed at the GE junction upon retroflexion.
Otherwise, stomach appeared normal on both direct and retroflexion views.
Duodenum:
Normal appearance up to the third portion.
Start on clear liquid diet.
Continue IV PPI 40 mg BID.
Hold Eliquis.
may benefit from palliative esophageal stent; surgery consulted for feeding tube
Assessment/plan:
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
CT chest/abdomen/pelvis shows:
circumferential wall thickening of the distal esophagus, highly suspicious for esophageal carcinoma.
Jackie metastatic disease involving mediastinal, bilateral hilar, distal paraesophageal, gastrohepatic, and retroperitoneal lymph nodes.
Multiple small hepatic metastases noted.
Mild urinary bladder wall thickening; recommend correlation with urinalysis for possible cystitis.
Keep patient NPO.
Continue IV fluids for hydration.
Plan for EGD Friday 05/11
continue PPI.
GI and Oncology consulted.
EGD shows:
Esophagus:
Partially obstructing, likely malignant tumor located at the distal esophagus and extending to the gastroesophageal (GE) junction. Appearance consistent with Siewert type I lesion.
Multiple biopsies obtained and sent for [facility] pathology.
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
Stomach:
Ulcerated mass observed at the GE junction upon retroflexion.
Started on clear liquid diet.
Continue IV PPI 40 mg BID.
Hold Eliquis.
may benefit from palliative esophageal stent; GI to discuss with Dr. Freitas.
05/12
Status post PEG tube
05/13
Start tube feeding today
� Moderate protein calorie malnutrition of chronic illness
Start tube feeding today
Paroxysmal atrial fibrillation
Hold Eliquis for procedural requirements.
Continue metoprolol and diltiazem.
Essential hypertension
Hold valsartan/HCTZ.
Normocytic anemia.
Continue to monitor
Hypomagnesemia
Replete and monitor magnesium levels.
DVT prophylaxis
Sequential compression devices (SCDs).
Code Status
Full code.
Diet: Clear liquid plus Jevity tube feeding
Family communication: Discussed with
Disposition: Start tube feeding
Total time spent on today's encounter was 55 minutes which included time spent in counseling the patient/family regarding diagnosis and treatment plan as listed above, goals of care, and symptom management. Case was discussed with nursing staff,
specialists, and care coordinators/case management. All labs and imaging personally reviewed by me. Remainder the time spent in detailed review of previous records, lab data, imaging, and other medical provider documentation.
Part of this note was created using voice recognition system. Occasional wrong word or �sound alike� substitutions may have inadvertently occurred due to the inherent limitations of voice recognition software. If noted kindly bring it to my
attention for correction.
Anticipated Discharge: 24 - 48 hours
Subjective/Interval History
-
Date of Service: May 13, 2025
Objective Data
-
Labs:
Laboratory Results
05/13/25
07:01
WBC 10.4
Hgb 11.1 L
Hct 32.4 L
Plt Count 206
Sodium 136
Potassium 3.5
Chloride 106
Carbon Dioxide 24
BUN 12
Creatinine 0.6
Glucose 142 H
Calcium 8.7
Vital Signs:
Vital Signs
Temp Pulse Resp BP Pulse Ox
97.6 F 91 18 157/82 98
05/13/25 07:30 05/13/25 07:30 05/13/25 07:30 05/13/25 07:30 05/13/25 07:30
I&O
05/12/25 05/13/25 05/14/25
06:59 06:59 06:59
Intake Total 480 / 480 50 / 50
Balance 480 / 480 50 / 50
--- NOTE | 2025-05-13 16:20 | PTCARENOTE ---
Pt fell while in bathroom. Already has bed alarm in place - was walked in to bathroom by PCT and given privacy on toilet. Pt was instructed to pull cord when finished but didn't and stood up, dropped paper towel and fell back when trying to pick it
up. VSS. Denies any pain/discomfort. No sign of injury noted. present at time of fall. Able to stand and ambulate back to bed. Pt instructed on importance of not getting up unassisted, verbalized understanidng, stating 'especially now - I
fell twice here'. Bed alarm and fall precautions already in place, round trip sign placed now as well - pt not to be left alone on toilet.
[2025-05-14] MEDS: ROCEPHIN 1000 MG IV (04:12)
[2025-05-14] MEDS: STERILE WATER FOR INJECTION 10 ML IV (04:12)
[2025-05-14 07:57] VITALS: BP 139/66
[2025-05-14] MEDS: CARDIZEM CD 300 MG PO (08:06)
[2025-05-14] MEDS: PROTONIX IV 40 MG IV ×2 (08:06→20:08)
[2025-05-14] MEDS: TOPROL XL 25 MG PO (08:06)
[2025-05-14] MEDS: NSS (PRESERVATIVE FREE) 10 ML IV ×2 (08:06→20:06)
[2025-05-14 10:24] LABS: Hematocrit 35.3 % (37.0-47.0); Hemoglobin 12.0 g/dL (12.0-16.0); Mean Corp Hgb Conc. 34.0 g/dL (33.0-37.0); Mean Corpuscular Volume 91.5 fL (81.0-99.0); Platelet Count 237 10^3/uL (130-400); Red Cell Dist. Width 14.9 % (11.5-14.5)
[2025-05-14 10:34] LABS: Blood Urea Nitrogen 19 mg/dl (7-17); Calcium 9.0 mg/dl (8.4-10.2); Carbon Dioxide 24 mmol/L (22-30); Chloride 104 mmol/L (98-107); Estimated Creatinine Clearance 60 ml/min; Glucose 136 mg/dl (70-99); Potassium 3.7 mmol/L (3.5-5.1); Sodium 136 mmol/L (135-145); eGFR > 60.00
--- NOTE | 2025-05-14 12:14 | W.PN.HOSP.TC ---
Today's Communication/Plan
-
Discharge home once home health care / arranging for tube feeding
Assessment / Plan
Assessment / Plan
Impression:
Patient is 79 years old with history of paroxysmal A-fib, hypertension who presented with dysphagia and significant weight loss with CT abdomen pelvis with concern of esophageal carcinoma with metastasis, GI consulted and plan for EGD.
EGD shows:
Esophagus:
Partially obstructing, likely malignant tumor located at the distal esophagus and extending to the gastroesophageal (GE) junction. Appearance consistent with Siewert type I lesion.
Multiple biopsies obtained and sent for [facility] pathology.
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
Stomach:
Ulcerated mass observed at the GE junction upon retroflexion.
Otherwise, stomach appeared normal on both direct and retroflexion views.
Duodenum:
Normal appearance up to the third portion.
Start on clear liquid diet.
Continue IV PPI 40 mg BID.
Hold Eliquis.
may benefit from palliative esophageal stent; surgery consulted for feeding tube
Assessment/plan:
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
CT chest/abdomen/pelvis shows:
circumferential wall thickening of the distal esophagus, highly suspicious for esophageal carcinoma.
Jackie metastatic disease involving mediastinal, bilateral hilar, distal paraesophageal, gastrohepatic, and retroperitoneal lymph nodes.
Multiple small hepatic metastases noted.
Mild urinary bladder wall thickening; recommend correlation with urinalysis for possible cystitis.
Keep patient NPO.
Continue IV fluids for hydration.
Plan for EGD Friday 05/11
continue PPI.
GI and Oncology consulted.
EGD shows:
Esophagus:
Partially obstructing, likely malignant tumor located at the distal esophagus and extending to the gastroesophageal (GE) junction. Appearance consistent with Siewert type I lesion.
Multiple biopsies obtained and sent for [facility] pathology.
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
Stomach:
Ulcerated mass observed at the GE junction upon retroflexion.
Started on clear liquid diet.
Continue IV PPI 40 mg BID.
Hold Eliquis.
may benefit from palliative esophageal stent; GI to discuss with Dr. Freitas.
05/12
Status post PEG tube
05/13
Start tube feeding today
05/14
Tolerating tube feeding
� Moderate protein calorie malnutrition of chronic illness
Start tube feeding today
Paroxysmal atrial fibrillation
Hold Eliquis for procedural requirements.
Continue metoprolol and diltiazem.
Essential hypertension
Hold valsartan/HCTZ.
Normocytic anemia.
Continue to monitor
Hypomagnesemia
Replete and monitor magnesium levels.
DVT prophylaxis
Sequential compression devices (SCDs).
Code Status
Full code.
Diet: Clear liquid plus Jevity tube feeding
Family communication: Discussed with
Disposition: Discharge home once home health care / arranging for tube feeding
Total time spent on today's encounter was 55 minutes which included time spent in counseling the patient/family regarding diagnosis and treatment plan as listed above, goals of care, and symptom management. Case was discussed with nursing staff,
specialists, and care coordinators/case management. All labs and imaging personally reviewed by me. Remainder the time spent in detailed review of previous records, lab data, imaging, and other medical provider documentation.
Part of this note was created using voice recognition system. Occasional wrong word or �sound alike� substitutions may have inadvertently occurred due to the inherent limitations of voice recognition software. If noted kindly bring it to my
attention for correction.
Anticipated Discharge: Within 24 hours
Subjective/Interval History
-
Date of Service: May 14, 2025
Patient seen and examined at bedside, tolerating tube feeding, had episode of coughing in the morning but resolved, denies any chest pain or shortness of breath, no abdominal pain, no nausea, no vomiting, no diarrhea or constipation.
Objective Data
-
Labs:
Laboratory Results
05/14/25
09:58
WBC 13.1 H
Hgb 12.0
Hct 35.3 L
Plt Count 237
Sodium 136
Potassium 3.7
Chloride 104
Carbon Dioxide 24
BUN 19 H
Creatinine 0.7
Glucose 136 H
Calcium 9.0
Vital Signs:
Vital Signs
Temp Pulse Resp BP Pulse Ox
97.7 F 75 19 139/66 97
05/14/25 07:57 05/14/25 07:57 05/14/25 07:57 05/14/25 07:57 05/14/25 07:57
I&O
05/13/25 05/14/25 05/15/25
06:59 06:59 06:59
Intake Total 50 / 50
Balance 50 / 50
Physical Exam
-
General: Well Developed, Well Nourished, No Apparent Distress and Comfortable
HEENT: Normocephalic, Atraumatic, Moist Mucous Membranes, No Ptosis, PERRLA and Nose Appears Normal
Respiratory: Clear to Auscultation and Non Labored Respirations
Cardiac: Regular Rhythm and S1/S2
Breast: Deferred by me
GI: Soft, Nontender, Nondistended, Normal Bowel Sounds and Other (PEG tube)
Genito-urinary: No Costovertebral Tender
Musculoskeletal: No Clubbing, No Cyanosis and No Edema
Skin: Warm
Neuro: Awake, Alert, Oriented, AO x 3 and No Motor Deficits
Psych: Calm
[2025-05-14 15:42] VITALS: BP 132/74
[2025-05-14 23:00] VITALS: BP 144/73
[2025-05-15] MEDS: STERILE WATER FOR INJECTION 10 ML IV (04:52)
[2025-05-15] MEDS: ROCEPHIN 1000 MG IV (04:53)
[2025-05-15 07:34] LABS: Hematocrit 34.2 % (37.0-47.0); Hemoglobin 11.7 g/dL (12.0-16.0); Mean Corp Hgb Conc. 34.2 g/dL (33.0-37.0); Mean Corpuscular Volume 91.7 fL (81.0-99.0); Platelet Count 208 10^3/uL (130-400); Red Cell Dist. Width 14.6 % (11.5-14.5)
[2025-05-15 07:39] VITALS: BP 156/72
[2025-05-15 08:26] LABS: Blood Urea Nitrogen 16 mg/dl (7-17); Calcium 8.6 mg/dl (8.4-10.2); Carbon Dioxide 27 mmol/L (22-30); Chloride 99 mmol/L (98-107); Estimated Creatinine Clearance 70 ml/min; Glucose 101 mg/dl (70-99); Potassium 3.2 mmol/L (3.5-5.1); Sodium 134 mmol/L (135-145); eGFR > 60.00
[2025-05-15] MEDS: CARDIZEM CD 300 MG PO (08:55)
[2025-05-15] MEDS: TOPROL XL 25 MG PO (08:56)
[2025-05-15] MEDS: NSS (PRESERVATIVE FREE) 10 ML IV ×2 (08:56→20:53)
[2025-05-15] MEDS: PROTONIX IV 40 MG IV ×2 (08:56→20:53)
--- NOTE | 2025-05-15 08:59 | W.PN.ONC2 ---
Today's Communication / Plan
-
See updated plan. Updated patient and both and son. Outpatient F/U being arranged. Okay for D/C home from oncology perspective.
Impression
Impression
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
dysphagia
PAF on DOAC
Plan
Plan
Pathology reviewed. Poorly differentiated adenocarcinoma, Low Prob MSI-H and Her 2/tessa 1+ (negative). Reviewed with patient and family.
S/p laproscopic G-tube for enteral feeds. Possible palliative esophageal stent placement by Dr. Freitas (outpatient)
CT reviewed c/w stage IV disease. Updated and son Abdon.
Will need systemic chemotherapy eg FLOT + durvalumab (new [facility] data suggests use in all comers now; PDL-1 pending)
Subjective/Objective
Chief Complaint
ACS
Subjective
No complaints other than hearing loss and issues with hearing aids. Getting tube feeds.
Vital Signs:
Vital Signs
Temp Pulse Resp BP Pulse Ox
97.9 F 73 17 156/72 98
05/15/25 07:39 05/15/25 08:55 05/15/25 07:39 05/15/25 08:55 05/15/25 07:39
Lab Results:
Laboratory Data
WBC 9.3 10^3/uL (4.8-10.8) 05/15/25 07:15
Hgb 11.7 g/dL (12.0-16.0) L 05/15/25 07:15
Plt Count 208 10^3/uL (130-400) 05/15/25 07:15
eGFR > 60.00 05/15/25 07:15
Physical Exam
Cardiology: S1 and S2
Pulmonary: Clear
GI: Soft
[2025-05-15] MEDS: SENOKOT-S 1 TABLET PO (09:00)
[2025-05-15 10:26] LABS: Magnesium 1.5 mg/dl (1.6-2.3)
[2025-05-15 11:46] VITALS: BP 153/90; PULSE 83; O2SAT 98
[2025-05-15] MEDS: MAGNESIUM SULFATE 50 IV (12:06)
[2025-05-15] MEDS: KCL ELIXIR 40 MEQ TUBE ×2 (12:18→14:56)
--- NOTE | 2025-05-15 13:16 | W.PN.HOSP.TC ---
Today's Communication/Plan
-
Discharge home once home health care / arranging for tube feeding
Assessment / Plan
Assessment / Plan
Impression:
Patient is 79 years old with history of paroxysmal A-fib, hypertension who presented with dysphagia and significant weight loss with CT abdomen pelvis with concern of esophageal carcinoma with metastasis, GI consulted and plan for EGD.
EGD shows:
Esophagus:
Partially obstructing, likely malignant tumor located at the distal esophagus and extending to the gastroesophageal (GE) junction. Appearance consistent with Siewert type I lesion.
Multiple biopsies obtained and sent for bashir pathology.
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
Stomach:
Ulcerated mass observed at the GE junction upon retroflexion.
Otherwise, stomach appeared normal on both direct and retroflexion views.
Duodenum:
Normal appearance up to the third portion.
Start on clear liquid diet.
Continue IV PPI 40 mg BID.
Hold Eliquis.
may benefit from palliative esophageal stent; surgery consulted for feeding tube
S/P PEG tube, started on tube feeding
Assessment/plan:
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
CT chest/abdomen/pelvis shows:
circumferential wall thickening of the distal esophagus, highly suspicious for esophageal carcinoma.
Jackie metastatic disease involving mediastinal, bilateral hilar, distal paraesophageal, gastrohepatic, and retroperitoneal lymph nodes.
Multiple small hepatic metastases noted.
Mild urinary bladder wall thickening; recommend correlation with urinalysis for possible cystitis.
Keep patient NPO.
Continue IV fluids for hydration.
Plan for EGD Friday 05/11
continue PPI.
GI and Oncology consulted.
EGD shows:
Esophagus:
Partially obstructing, likely malignant tumor located at the distal esophagus and extending to the gastroesophageal (GE) junction. Appearance consistent with Siewert type I lesion.
Multiple biopsies obtained and sent for bashir pathology.
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
Stomach:
Ulcerated mass observed at the GE junction upon retroflexion.
Started on clear liquid diet.
Continue IV PPI 40 mg BID.
Hold Eliquis.
may benefit from palliative esophageal stent; GI to discuss with Dr. Freitas.
05/12
Status post PEG tube
05/13
Start tube feeding today
05/14
Tolerating tube feeding
� Moderate protein calorie malnutrition of chronic illness
tolerating tube feeding.
Acute UTI.
Urine culture shows E. coli.
Sensitive to Rocephin.
Continue Rocephin for now
Paroxysmal atrial fibrillation
Hold Eliquis for procedural requirements.
Continue metoprolol and diltiazem.
Essential hypertension
Hold valsartan/HCTZ.
Normocytic anemia.
Continue to monitor
Hypomagnesemia
Replete and monitor magnesium levels.
DVT prophylaxis
Sequential compression devices (SCDs).
Code Status
Full code.
Diet: Clear liquid plus Jevity tube feeding
Family communication: Discussed with
Disposition: Discharge home once home health care / arranging for tube feeding
Total time spent on today's encounter was 55 minutes which included time spent in counseling the patient/family regarding diagnosis and treatment plan as listed above, goals of care, and symptom management. Case was discussed with nursing staff,
specialists, and care coordinators/case management. All labs and imaging personally reviewed by me. Remainder the time spent in detailed review of previous records, lab data, imaging, and other medical provider documentation.
Part of this note was created using voice recognition system. Occasional wrong word or �sound alike� substitutions may have inadvertently occurred due to the inherent limitations of voice recognition software. If noted kindly bring it to my
attention for correction.
Anticipated Discharge: Today
Subjective/Interval History
-
Date of Service: May 15, 2025
Patient seen and examined at bedside, denies any chest pain or shortness of breath, no abdominal pain, no nausea, no vomiting, no diarrhea or constipation.
Objective Data
-
Labs:
Laboratory Results
05/15/25
07:15
WBC 9.3
Hgb 11.7 L
Hct 34.2 L
Plt Count 208
Sodium 134 L
Potassium 3.2 L
Chloride 99
Carbon Dioxide 27
BUN 16
Creatinine 0.6
Glucose 101 H
Calcium 8.6
Vital Signs:
Vital Signs
Temp Pulse Resp BP Pulse Ox
97.9 F 73 17 156/72 98
05/15/25 07:39 05/15/25 08:55 05/15/25 07:39 05/15/25 08:55 05/15/25 07:39
I&O
05/14/25 05/15/25 05/16/25
06:59 06:59 06:59
Intake Total 600 / 600
Balance 600 / 600
Physical Exam
-
General: Well Developed, Well Nourished, No Apparent Distress and Comfortable
HEENT: Normocephalic, Atraumatic, Moist Mucous Membranes, No Ptosis, PERRLA and Nose Appears Normal
Respiratory: Clear to Auscultation and Non Labored Respirations
Cardiac: Regular Rhythm and S1/S2
Breast: Deferred by me
GI: Soft, Nontender, Nondistended, Normal Bowel Sounds and Other (PEG tube)
Genito-urinary: No Costovertebral Tender
Musculoskeletal: No Clubbing, No Cyanosis and No Edema
Skin: Warm
Neuro: Awake, Alert, Oriented, AO x 3 and No Motor Deficits
Psych: Calm
--- NOTE | 2025-05-15 14:51 | VNURNOTE ---
Addendum entered by Mary Anne Severino RN 05/15/25 16:02:
Left msg with pt's PCP Dr Bruna Linder- requesting to follow for VN and tube feeds once DC'ed.
Original Note:
Home Health Liaison met with patient and spouse at bedside to discuss [facility] nurse/therapy, visits, schedule and homebound status. Patient is agreeable and understands that visits at home will be 2-3 x per week to assess and teach medical and tube
feed management. Patient is aware that [facility] will see her for a same day visit at home day of DC from . Provided contact number for [facility]. Inquired if pt will need a hospital bed rental - she declined. She stated she has a recliner at home,
she is aware of need for HOB elevation w/TFs. Inquired about family - pt's spouse said they have a son but he lives an hour away. Noted [employer].
Day of DC: please DC by 1100. Will need to confirm DME will be delivered to home by 1300 day of DC. [facility] will see her at home the afternoon of DC.
[facility] referral completed in [facility].
[2025-05-15 15:18] VITALS: BP 146/75
--- NOTE | 2025-05-15 16:00 | PTCARENOTE ---
Patient and educated on tube feed and G tube, how to clamp tube when administering feeds, different ports and the basics on tube feedings. All questions answered at this time.
--- NOTE | 2025-05-15 17:05 | CM ---
patient seen at bedside
on TF
spoke with Henry from [facility] - faxed clinicals to [phone] to get insurance approval.
order sheet will need to be faxed
[facility] referral in [facility]
plan: Home with [facility] & [facility] for tube feeds, when set up
[2025-05-15 23:34] VITALS: BP 143/82
[2025-05-16 03:00] VITALS: BP 158/77
[2025-05-16] MEDS: ROCEPHIN 1000 MG IV (04:05)
[2025-05-16] MEDS: STERILE WATER FOR INJECTION 10 ML IV (04:05)
[2025-05-16 05:19] LABS: Hematocrit 36.2 % (37.0-47.0); Hemoglobin 12.4 g/dL (12.0-16.0); Mean Corp Hgb Conc. 34.3 g/dL (33.0-37.0); Mean Corpuscular Volume 90.7 fL (81.0-99.0); Platelet Count 244 10^3/uL (130-400); Red Cell Dist. Width 14.8 % (11.5-14.5)
[2025-05-16 05:44] LABS: Blood Urea Nitrogen 12 mg/dl (7-17); Calcium 8.7 mg/dl (8.4-10.2); Carbon Dioxide 26 mmol/L (22-30); Chloride 101 mmol/L (98-107); Estimated Creatinine Clearance 70 ml/min; Glucose 151 mg/dl (70-99); Magnesium 1.7 mg/dl (1.6-2.3); Potassium 4.2 mmol/L (3.5-5.1); Sodium 134 mmol/L (135-145); eGFR > 60.00
[2025-05-16 07:00] VITALS: BP 159/85
[2025-05-16] MEDS: PROTONIX IV 40 MG IV ×2 (08:14→20:46)
[2025-05-16] MEDS: NSS (PRESERVATIVE FREE) 10 ML IV ×2 (08:15→20:46)
[2025-05-16] MEDS: CARDIZEM CD 300 MG PO (08:15)
[2025-05-16] MEDS: TOPROL XL 25 MG PO (08:16)
--- NOTE | 2025-05-16 12:26 | W.PN.HOSP.TC ---
Today's Communication/Plan
-
Discharge home once home health care / arranging for tube feeding
Assessment / Plan
Assessment / Plan
Impression:
Patient is 79 years old with history of paroxysmal A-fib, hypertension who presented with dysphagia and significant weight loss with CT abdomen pelvis with concern of esophageal carcinoma with metastasis, GI consulted and plan for EGD.
EGD shows:
Esophagus:
Partially obstructing, likely malignant tumor located at the distal esophagus and extending to the gastroesophageal (GE) junction. Appearance consistent with Siewert type I lesion.
Multiple biopsies obtained and sent for bashir pathology.
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
Stomach:
Ulcerated mass observed at the GE junction upon retroflexion.
Otherwise, stomach appeared normal on both direct and retroflexion views.
Duodenum:
Normal appearance up to the third portion.
Start on clear liquid diet.
Continue IV PPI 40 mg BID.
Hold Eliquis.
may benefit from palliative esophageal stent; surgery consulted for feeding tube
S/P PEG tube, started on tube feeding
Assessment/plan:
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
CT chest/abdomen/pelvis shows:
circumferential wall thickening of the distal esophagus, highly suspicious for esophageal carcinoma.
Jackie metastatic disease involving mediastinal, bilateral hilar, distal paraesophageal, gastrohepatic, and retroperitoneal lymph nodes.
Multiple small hepatic metastases noted.
Mild urinary bladder wall thickening; recommend correlation with urinalysis for possible cystitis.
Keep patient NPO.
Continue IV fluids for hydration.
Plan for EGD Friday 05/11
continue PPI.
GI and Oncology consulted.
EGD shows:
Esophagus:
Partially obstructing, likely malignant tumor located at the distal esophagus and extending to the gastroesophageal (GE) junction. Appearance consistent with Siewert type I lesion.
Multiple biopsies obtained and sent for bashir pathology.
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
Stomach:
Ulcerated mass observed at the GE junction upon retroflexion.
Started on clear liquid diet.
Continue IV PPI 40 mg BID.
Hold Eliquis.
may benefit from palliative esophageal stent; GI to discuss with Dr. Freitas.
05/12
Status post PEG tube
05/13
Start tube feeding today
05/14
Tolerating tube feeding
� Moderate protein calorie malnutrition of chronic illness
tolerating tube feeding.
Acute UTI.
Urine culture shows E. coli.
Sensitive to Rocephin.
Continue Rocephin for now
Paroxysmal atrial fibrillation
Hold Eliquis for procedural requirements.
Continue metoprolol and diltiazem.
Essential hypertension
Hold valsartan/HCTZ.
Normocytic anemia.
Continue to monitor
Hypomagnesemia
Replete and monitor magnesium levels.
DVT prophylaxis
Sequential compression devices (SCDs).
Code Status
Full code.
Diet: Clear liquid plus Jevity tube feeding
Family communication: Discussed with
Disposition: Discharge home once home health care / arranging for tube feeding
Total time spent on today's encounter was 55 minutes which included time spent in counseling the patient/family regarding diagnosis and treatment plan as listed above, goals of care, and symptom management. Case was discussed with nursing staff,
specialists, and care coordinators/case management. All labs and imaging personally reviewed by me. Remainder the time spent in detailed review of previous records, lab data, imaging, and other medical provider documentation.
Part of this note was created using voice recognition system. Occasional wrong word or �sound alike� substitutions may have inadvertently occurred due to the inherent limitations of voice recognition software. If noted kindly bring it to my
attention for correction.
Anticipated Discharge: Today
Subjective/Interval History
-
Date of Service: May 16, 2025
Patient seen and examined at bedside, denies any chest pain or shortness of breath, no abdominal pain, no nausea, no vomiting, no diarrhea or constipation.
Objective Data
-
Labs:
Laboratory Results
05/16/25
05:13
WBC 9.8
Hgb 12.4
Hct 36.2 L
Plt Count 244
Sodium 134 L
Potassium 4.2 D
Chloride 101
Carbon Dioxide 26
BUN 12
Creatinine 0.5 L
Glucose 151 H
Calcium 8.7
Vital Signs:
Vital Signs
Temp Pulse Resp BP Pulse Ox
98.3 F 88 17 159/85 96
05/16/25 07:00 05/16/25 08:15 05/16/25 07:00 05/16/25 08:15 05/16/25 08:46
I&O
05/15/25 05/16/25 05/17/25
06:59 06:59 06:59
Intake Total 600 / 600 600 / 600
Balance 600 / 600 600 / 600
Physical Exam
-
General: Well Developed, Well Nourished, No Apparent Distress and Comfortable
HEENT: Normocephalic, Atraumatic, Moist Mucous Membranes, No Ptosis, PERRLA and Nose Appears Normal
Respiratory: Clear to Auscultation and Non Labored Respirations
Cardiac: Regular Rhythm and S1/S2
Breast: Deferred by me
GI: Soft, Nontender, Nondistended, Normal Bowel Sounds and Other (PEG tube)
Genito-urinary: No Costovertebral Tender
Musculoskeletal: No Clubbing, No Cyanosis and No Edema
Skin: Warm
Neuro: Awake, Alert, Oriented, AO x 3 and No Motor Deficits
Psych: Calm
[2025-05-16] MEDS: MAGNESIUM SULFATE 50 IV (13:11)
[2025-05-16 15:00] VITALS: BP 159/85
[2025-05-16 23:00] VITALS: BP 143/81
--- NOTE | 2025-05-17 01:04 | PTCARENOTE ---
patient complaints of upset stomach in LLQ. no distention or pain just discomfort in the LLQ. patient requesting something to help relieve upset stomach. MARTA [place] notified. this RN was informed to slow down feeding rate to 50 cc for one
hour. tube feeding rate decreased to 50 cc. POC ongoing.
--- NOTE | 2025-05-17 02:10 | W.PN.UPDATE ---
Update Note
Progress Note Update
At 0040 RN reports patient complained of upset stomach. Patient had started on clear diet today along with TF running at 65cc/hr. States she had broth and ever since she had one episode of vomiting. Now she is complaining of upset stomach, denies
n/v. abdomen non distended. Will slow the rate of TF to 50cc/hr. Patient states feelign better after one hour of slow rated, and slowly advace to goal by 0700.
--- NOTE | 2025-05-17 02:14 | PTCARENOTE ---
patient stated no longer feeling LLQ discomfort. MARTA [place] notified of improvement. This RN was informed by MARTA to slowly increase rate back to goal rate of 65ml/hr by 0700. POC ongoing.
[2025-05-17] MEDS: STERILE WATER FOR INJECTION 10 ML IV (03:55)
[2025-05-17] MEDS: ROCEPHIN 1000 MG IV (03:56)
[2025-05-17 07:15] VITALS: BP 151/87
[2025-05-17] MEDS: NSS (PRESERVATIVE FREE) 10 ML IV ×2 (07:29→20:30)
[2025-05-17] MEDS: PROTONIX IV 40 MG IV ×2 (07:29→20:30)
[2025-05-17] MEDS: TOPROL XL 25 MG PO (07:30)
[2025-05-17] MEDS: CARDIZEM CD 300 MG PO (07:30)
[2025-05-17 08:05] LABS: Hematocrit 32.9 % (37.0-47.0); Hemoglobin 11.0 g/dL (12.0-16.0); Mean Corp Hgb Conc. 33.4 g/dL (33.0-37.0); Mean Corpuscular Volume 91.6 fL (81.0-99.0); Platelet Count 209 10^3/uL (130-400); Red Cell Dist. Width 14.6 % (11.5-14.5)
[2025-05-17 08:32] LABS: Blood Urea Nitrogen 14 mg/dl (7-17); Calcium 8.4 mg/dl (8.4-10.2); Carbon Dioxide 29 mmol/L (22-30); Chloride 99 mmol/L (98-107); Estimated Creatinine Clearance 70 ml/min; Glucose 130 mg/dl (70-99); Magnesium 1.8 mg/dl (1.6-2.3); Potassium 3.9 mmol/L (3.5-5.1); Sodium 134 mmol/L (135-145); eGFR > 60.00
--- NOTE | 2025-05-17 11:29 | W.PN.HOSP.TC ---
Today's Communication/Plan
-
Discharge home once home health care / arranging for tube feeding
Assessment / Plan
Assessment / Plan
Impression:
Patient is 79 years old with history of paroxysmal A-fib, hypertension who presented with dysphagia and significant weight loss with CT abdomen pelvis with concern of esophageal carcinoma with metastasis, GI consulted and plan for EGD.
EGD shows:
Esophagus:
Partially obstructing, likely malignant tumor located at the distal esophagus and extending to the gastroesophageal (GE) junction. Appearance consistent with Siewert type I lesion.
Multiple biopsies obtained and sent for bashir pathology.
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
Stomach:
Ulcerated mass observed at the GE junction upon retroflexion.
Otherwise, stomach appeared normal on both direct and retroflexion views.
Duodenum:
Normal appearance up to the third portion.
Start on clear liquid diet.
Continue IV PPI 40 mg BID.
Hold Eliquis.
may benefit from palliative esophageal stent; surgery consulted for feeding tube
S/P PEG tube, started on tube feeding
Assessment/plan:
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
CT chest/abdomen/pelvis shows:
circumferential wall thickening of the distal esophagus, highly suspicious for esophageal carcinoma.
Jackie metastatic disease involving mediastinal, bilateral hilar, distal paraesophageal, gastrohepatic, and retroperitoneal lymph nodes.
Multiple small hepatic metastases noted.
Mild urinary bladder wall thickening; recommend correlation with urinalysis for possible cystitis.
Keep patient NPO.
Continue IV fluids for hydration.
Plan for EGD Friday 05/11
continue PPI.
GI and Oncology consulted.
EGD shows:
Esophagus:
Partially obstructing, likely malignant tumor located at the distal esophagus and extending to the gastroesophageal (GE) junction. Appearance consistent with Siewert type I lesion.
Multiple biopsies obtained and sent for bashir pathology.
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
Stomach:
Ulcerated mass observed at the GE junction upon retroflexion.
Started on clear liquid diet.
Continue IV PPI 40 mg BID.
Hold Eliquis.
may benefit from palliative esophageal stent; GI to discuss with Dr. Freitas.
05/12
Status post PEG tube
05/13
Start tube feeding today
05/14
Tolerating tube feeding
� Moderate protein calorie malnutrition of chronic illness
tolerating tube feeding.
Acute UTI.
Urine culture shows E. coli.
Sensitive to Rocephin.
Continue Rocephin for now
Paroxysmal atrial fibrillation
Hold Eliquis for procedural requirements.
Continue metoprolol and diltiazem.
Essential hypertension
Hold valsartan/HCTZ.
Normocytic anemia.
Continue to monitor
Hypomagnesemia
Replete and monitor magnesium levels.
DVT prophylaxis
Sequential compression devices (SCDs).
Code Status
Full code.
Diet: Clear liquid plus Jevity tube feeding
Family communication: Discussed with
Disposition: Discharge home once home health care / arranging for tube feeding
Total time spent on today's encounter was 55 minutes which included time spent in counseling the patient/family regarding diagnosis and treatment plan as listed above, goals of care, and symptom management. Case was discussed with nursing staff,
specialists, and care coordinators/case management. All labs and imaging personally reviewed by me. Remainder the time spent in detailed review of previous records, lab data, imaging, and other medical provider documentation.
Part of this note was created using voice recognition system. Occasional wrong word or �sound alike� substitutions may have inadvertently occurred due to the inherent limitations of voice recognition software. If noted kindly bring it to my
attention for correction.
Anticipated Discharge: Today
Subjective/Interval History
-
Date of Service: May 17, 2025
Patient seen and examined at bedside, denies any chest pain or shortness of breath, no abdominal pain, had nausea and vomiting last night but otherwise feeling better now, complaining of constipation.
Objective Data
-
Labs:
Laboratory Results
05/17/25
06:52
WBC 7.9
Hgb 11.0 L
Hct 32.9 L
Plt Count 209
Sodium 134 L
Potassium 3.9
Chloride 99
Carbon Dioxide 29
BUN 14
Creatinine 0.5 L
Glucose 130 H
Calcium 8.4
Vital Signs:
Vital Signs
Temp Pulse Resp BP Pulse Ox
98.3 F 85 16 151/87 98
05/17/25 07:15 05/17/25 07:15 05/17/25 07:15 05/17/25 07:15 05/17/25 07:15
I&O
05/16/25 05/17/25 05/18/25
06:59 06:59 06:59
Intake Total 600 / 600 240 / 240
Balance 600 / 600 240 / 240
Physical Exam
-
General: Well Developed, Well Nourished, No Apparent Distress and Comfortable
HEENT: Normocephalic, Atraumatic, Moist Mucous Membranes, No Ptosis, PERRLA and Nose Appears Normal
Respiratory: Clear to Auscultation and Non Labored Respirations
Cardiac: Regular Rhythm and S1/S2
Breast: Deferred by me
GI: Soft, Nontender, Nondistended, Normal Bowel Sounds and Other (PEG tube)
Genito-urinary: No Costovertebral Tender
Musculoskeletal: No Clubbing, No Cyanosis and No Edema
Skin: Warm
Neuro: Awake, Alert, Oriented, AO x 3 and No Motor Deficits
Psych: Calm
[2025-05-17] MEDS: SENOKOT-S 1 TABLET PO (14:27)
[2025-05-17] MEDS: MIRALAX 17 GRAMS PO (14:27)
[2025-05-17 16:00] VITALS: BP 134/62
[2025-05-17 23:00] VITALS: BP 131/62
[2025-05-18] MEDS: ROCEPHIN 1000 MG IV (04:29)
[2025-05-18] MEDS: STERILE WATER FOR INJECTION 10 ML IV (04:29)
[2025-05-18 07:27] LABS: Hematocrit 33.7 % (37.0-47.0); Hemoglobin 11.6 g/dL (12.0-16.0); Mean Corp Hgb Conc. 34.4 g/dL (33.0-37.0); Mean Corpuscular Volume 92.1 fL (81.0-99.0); Platelet Count 229 10^3/uL (130-400); Red Cell Dist. Width 14.6 % (11.5-14.5)
[2025-05-18 07:30] VITALS: BP 147/85
[2025-05-18] MEDS: CARDIZEM CD 300 MG PO (07:52)
[2025-05-18] MEDS: TOPROL XL 25 MG PO (07:52)
[2025-05-18] MEDS: NSS (PRESERVATIVE FREE) 10 ML IV ×2 (07:52→20:03)
[2025-05-18] MEDS: PROTONIX IV 40 MG IV ×2 (07:55→20:03)
[2025-05-18 07:56] LABS: Blood Urea Nitrogen 15 mg/dl (7-17); Calcium 8.5 mg/dl (8.4-10.2); Carbon Dioxide 26 mmol/L (22-30); Chloride 100 mmol/L (98-107); Estimated Creatinine Clearance 70 ml/min; Glucose 131 mg/dl (70-99); Magnesium 1.7 mg/dl (1.6-2.3); Potassium 4.3 mmol/L (3.5-5.1); Sodium 134 mmol/L (135-145); eGFR > 60.00
[2025-05-18 10:08] VITALS: BP 148/81; PULSE 91; O2SAT 98
--- NOTE | 2025-05-18 11:33 | CM ---
Addendum entered by Joan Fraser 05/18/25 16:10:
coordinated with [facility] tube feed delivery tomorrow & [facility] can admit tomorrow
request discharge at 11am-hospitalist aware
called and will be at hospital tomorrow at 11am to transport
Addendum entered by Joan Fraser 05/18/25 13:10:
IMM explained. in chart
Original Note:
spoke with Toña Sood - [facility]eral prescriber order form completed - hospitalist signed form
faxed order form to [facility] [phone] - left message with Chante at [facility]
0 out of pocket for formula, 20% co-insurance for supplies, discussed with patient
PLAN: Home with [facility] and [facility] (tube feeds), once confirmed & coordinated
--- NOTE | 2025-05-18 13:19 | W.PN.HOSP.TC ---
Today's Communication/Plan
-
Resume Eliquis
Discharge home once home health care / arranging for tube feeding
Assessment / Plan
Assessment / Plan
Impression:
Patient is 79 years old with history of paroxysmal A-fib, hypertension who presented with dysphagia and significant weight loss with CT abdomen pelvis with concern of esophageal carcinoma with metastasis, GI consulted and plan for EGD.
EGD shows:
Esophagus:
Partially obstructing, likely malignant tumor located at the distal esophagus and extending to the gastroesophageal (GE) junction. Appearance consistent with Siewert type I lesion.
Multiple biopsies obtained and sent for [place] pathology.
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
Stomach:
Ulcerated mass observed at the GE junction upon retroflexion.
Otherwise, stomach appeared normal on both direct and retroflexion views.
Duodenum:
Normal appearance up to the third portion.
Start on clear liquid diet.
Continue IV PPI 40 mg BID.
Hold Eliquis.
may benefit from palliative esophageal stent; surgery consulted for feeding tube
S/P PEG tube, started on tube feeding
Assessment/plan:
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
CT chest/abdomen/pelvis shows:
circumferential wall thickening of the distal esophagus, highly suspicious for esophageal carcinoma.
Jackie metastatic disease involving mediastinal, bilateral hilar, distal paraesophageal, gastrohepatic, and retroperitoneal lymph nodes.
Multiple small hepatic metastases noted.
Mild urinary bladder wall thickening; recommend correlation with urinalysis for possible cystitis.
Keep patient NPO.
Continue IV fluids for hydration.
Plan for EGD Friday 05/11
continue PPI.
GI and Oncology consulted.
EGD shows:
Esophagus:
Partially obstructing, likely malignant tumor located at the distal esophagus and extending to the gastroesophageal (GE) junction. Appearance consistent with Siewert type I lesion.
Multiple biopsies obtained and sent for [place] pathology.
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
Stomach:
Ulcerated mass observed at the GE junction upon retroflexion.
Started on clear liquid diet.
Continue IV PPI 40 mg BID.
Hold Eliquis.
may benefit from palliative esophageal stent; GI to discuss with Dr. Freitas.
05/12
Status post PEG tube
05/13
Start tube feeding today
05/14
Tolerating tube feeding
� Moderate protein calorie malnutrition of chronic illness
tolerating tube feeding.
Acute UTI.
Urine culture shows E. coli.
Sensitive to Rocephin.
Continue Rocephin for now
Paroxysmal atrial fibrillation
Hold Eliquis for procedural requirements.
Continue metoprolol and diltiazem.
Resume Eliquis
Essential hypertension
Hold valsartan/HCTZ.
Normocytic anemia.
Continue to monitor
Hypomagnesemia
Replete and monitor magnesium levels.
DVT prophylaxis
Resume Eliquis
Code Status
Full code.
Diet: Clear liquid plus Jevity tube feeding
Family communication: Discussed with
Disposition: Discharge home once home health care / arranging for tube feeding
Total time spent on today's encounter was 55 minutes which included time spent in counseling the patient/family regarding diagnosis and treatment plan as listed above, goals of care, and symptom management. Case was discussed with nursing staff,
specialists, and care coordinators/case management. All labs and imaging personally reviewed by me. Remainder the time spent in detailed review of previous records, lab data, imaging, and other medical provider documentation.
Part of this note was created using voice recognition system. Occasional wrong word or �sound alike� substitutions may have inadvertently occurred due to the inherent limitations of voice recognition software. If noted kindly bring it to my
attention for correction.
Anticipated Discharge: Today
Subjective/Interval History
-
Date of Service: May 18, 2025
Patient seen and examined at bedside, denies any chest pain or shortness of breath, no abdominal pain, no nausea, no vomiting, no diarrhea or constipation.
Objective Data
-
Labs:
Laboratory Results
05/18/25
06:54
WBC 9.2
Hgb 11.6 L
Hct 33.7 L
Plt Count 229
Sodium 134 L
Potassium 4.3
Chloride 100
Carbon Dioxide 26
BUN 15
Creatinine 0.5 L
Glucose 131 H
Calcium 8.5
Vital Signs:
Vital Signs
Temp Pulse Resp BP Pulse Ox
98.2 F 90 16 147/85 98
05/18/25 07:30 05/18/25 07:30 05/18/25 07:30 05/18/25 07:30 05/18/25 07:30
I&O
05/17/25 05/18/25 05/19/25
06:59 06:59 06:59
Intake Total 240 / 240 960 / 960
Balance 240 / 240 960 / 960
Physical Exam
-
General: Well Developed, Well Nourished, No Apparent Distress and Comfortable
HEENT: Normocephalic, Atraumatic, Moist Mucous Membranes, No Ptosis, PERRLA and Nose Appears Normal
Respiratory: Clear to Auscultation and Non Labored Respirations
Cardiac: Regular Rhythm and S1/S2
Breast: Deferred by me
GI: Soft, Nontender, Nondistended, Normal Bowel Sounds and Other (PEG tube)
Genito-urinary: No Costovertebral Tender
Musculoskeletal: No Clubbing, No Cyanosis and No Edema
Skin: Warm
Neuro: Awake, Alert, Oriented, AO x 3 and No Motor Deficits
Psych: Calm
--- NOTE | 2025-05-18 13:43 | W.PN.ONC2 ---
Today's Communication / Plan
-
Close OP follow up will be arranged upon discharge
Impression
Impression
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
dysphagia S/p laproscopic G-tube for enteral feeds.
PAF on DOAC
Plan
Plan
Possible palliative esophageal stent placement by Dr. Freitas (outpatient)
Will need systemic chemotherapy eg FLOT + durvalumab (new [place] data suggests use in all comers now; PDL-1 pending)
Subjective/Objective
Subjective
pain improved
constipation
denies n/v
deneis bleeding
Vital Signs:
Vital Signs
Temp Pulse Resp BP Pulse Ox
98.2 F 90 16 147/85 98
05/18/25 07:30 05/18/25 07:30 05/18/25 07:30 05/18/25 07:30 05/18/25 07:30
Lab Results:
Laboratory Data
WBC 9.2 10^3/uL (4.8-10.8) 05/18/25 06:54
Hgb 11.6 g/dL (12.0-16.0) L 05/18/25 06:54
Plt Count 229 10^3/uL (130-400) 05/18/25 06:54
eGFR > 60.00 05/18/25 06:54
Physical Exam
HEENT: No Jaundice
Pulmonary: Other (unlabored)
GI: Other (PEG)
Extremities: Pulses Present
[2025-05-18] MEDS: MAGNESIUM OXIDE 400 MG TUBE (14:02)
[2025-05-18 15:15] VITALS: BP 141/69
[2025-05-18] MEDS: ELIQUIS 5 MG PO (20:02)
[2025-05-18 23:00] VITALS: BP 149/82
[2025-05-19] MEDS: ROCEPHIN 1000 MG IV (03:01)
[2025-05-19] MEDS: STERILE WATER FOR INJECTION 10 ML IV (03:01)
[2025-05-19] MEDS: ZOFRAN 4 MG IV (06:00)
[2025-05-19 07:00] VITALS: BP 94/65
[2025-05-19 07:09] LABS: Hematocrit 32.9 % (37.0-47.0); Hemoglobin 11.0 g/dL (12.0-16.0); Mean Corp Hgb Conc. 33.4 g/dL (33.0-37.0); Mean Corpuscular Volume 91.9 fL (81.0-99.0); Platelet Count 256 10^3/uL (130-400); Red Cell Dist. Width 14.7 % (11.5-14.5)
[2025-05-19 07:40] LABS: Blood Urea Nitrogen 16 mg/dl (7-17); Calcium 8.7 mg/dl (8.4-10.2); Carbon Dioxide 30 mmol/L (22-30); Chloride 97 mmol/L (98-107); Estimated Creatinine Clearance 70 ml/min; Glucose 131 mg/dl (70-99); Magnesium 1.7 mg/dl (1.6-2.3); Potassium 4.0 mmol/L (3.5-5.1); Sodium 134 mmol/L (135-145); eGFR > 60.00
[2025-05-19] MEDS: ELIQUIS 5 MG PO (08:01)
[2025-05-19] MEDS: SENOKOT-S 1 TABLET PO (08:02)
[2025-05-19] MEDS: MAGNESIUM OXIDE 400 MG TUBE (08:02)
[2025-05-19] MEDS: PROTONIX IV 40 MG IV (08:03)
[2025-05-19] MEDS: NSS (PRESERVATIVE FREE) 10 ML IV (08:03)
[2025-05-19 08:06] VITALS: BP 94/65
[2025-05-19] MEDS: CARDIZEM CD 300 MG PO (09:12)
[2025-05-19] MEDS: TOPROL XL 25 MG PO (09:12)
--- NOTE | 2025-05-19 11:17 | W.PN.HOSP.TC ---
Today's Communication/Plan
-
Discharge home today
Assessment / Plan
Assessment / Plan
Impression:
Patient is 79 years old with history of paroxysmal A-fib, hypertension who presented with dysphagia and significant weight loss with CT abdomen pelvis with concern of esophageal carcinoma with metastasis, GI consulted and plan for EGD.
EGD shows:
Esophagus:
Partially obstructing, likely malignant tumor located at the distal esophagus and extending to the gastroesophageal (GE) junction. Appearance consistent with Siewert type I lesion.
Multiple biopsies obtained and sent for [place] pathology.
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
Stomach:
Ulcerated mass observed at the GE junction upon retroflexion.
Otherwise, stomach appeared normal on both direct and retroflexion views.
Duodenum:
Normal appearance up to the third portion.
Start on clear liquid diet.
Continue IV PPI 40 mg BID.
Hold Eliquis.
may benefit from palliative esophageal stent; surgery consulted for feeding tube
S/P PEG tube, started on tube feeding
Will be discharged home on tube feeding
Follow-up with oncology as op.
Assessment/plan:
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
CT chest/abdomen/pelvis shows:
circumferential wall thickening of the distal esophagus, highly suspicious for esophageal carcinoma.
Jackie metastatic disease involving mediastinal, bilateral hilar, distal paraesophageal, gastrohepatic, and retroperitoneal lymph nodes.
Multiple small hepatic metastases noted.
Mild urinary bladder wall thickening; recommend correlation with urinalysis for possible cystitis.
Keep patient NPO.
Continue IV fluids for hydration.
Plan for EGD Friday 05/11
continue PPI.
GI and Oncology consulted.
EGD shows:
Esophagus:
Partially obstructing, likely malignant tumor located at the distal esophagus and extending to the gastroesophageal (GE) junction. Appearance consistent with Siewert type I lesion.
Multiple biopsies obtained and sent for [place] [facility].
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
Stomach:
Ulcerated mass observed at the GE junction upon retroflexion.
Started on clear liquid diet.
Continue IV PPI 40 mg BID.
Hold Eliquis.
may benefit from palliative esophageal stent; GI to discuss with Dr. Freitas.
05/12
Status post PEG tube
05/13
Start tube feeding today
05/14
Tolerating tube feeding
� Moderate protein calorie malnutrition of chronic illness
tolerating tube feeding.
Acute UTI.
Urine culture shows E. coli.
Sensitive to Rocephin.
Continue Rocephin for now
Paroxysmal atrial fibrillation
Hold Eliquis for procedural requirements.
Continue metoprolol and diltiazem.
Resume Eliquis
Essential hypertension
Hold valsartan/HCTZ.
Normocytic anemia.
Continue to monitor
Hypomagnesemia
Replete and monitor magnesium levels.
DVT prophylaxis
Resume Eliquis
Code Status
Full code.
Diet: Clear liquid plus Jevity tube feeding
Family communication: Discussed with
Disposition: Discharge home .
Total time spent on today's encounter was 55 minutes which included time spent in counseling the patient/family regarding diagnosis and treatment plan as listed above, goals of care, and symptom management. Case was discussed with nursing staff,
specialists, and care coordinators/case management. All labs and imaging personally reviewed by me. Remainder the time spent in detailed review of previous records, lab data, imaging, and other medical provider documentation.
Part of this note was created using voice recognition system. Occasional wrong word or �sound alike� substitutions may have inadvertently occurred due to the inherent limitations of voice recognition software. If noted kindly bring it to my
attention for correction.
Anticipated Discharge: Today
Subjective/Interval History
-
Date of Service: May 19, 2025
Patient seen and examined at bedside, denies any chest pain or shortness of breath, no abdominal pain, no nausea, no vomiting, no diarrhea or constipation.
Objective Data
-
Labs:
Laboratory Results
05/19/25
06:40
WBC 9.9
Hgb 11.0 L
Hct 32.9 L
Plt Count 256
Sodium 134 L
Potassium 4.0
Chloride 97 L
Carbon Dioxide 30
BUN 16
Creatinine 0.5 L
Glucose 131 H
Calcium 8.7
Vital Signs:
Vital Signs
Temp Pulse Resp BP Pulse Ox
98.1 F 95 17 139/82 98
05/19/25 07:00 05/19/25 09:12 05/19/25 07:00 05/19/25 09:12 05/19/25 07:00
I&O
05/18/25 05/19/25 05/20/25
06:59 06:59 06:59
Intake Total 960 / 960
Balance 960 / 960
Physical Exam
-
General: Well Developed, Well Nourished, No Apparent Distress and Comfortable
HEENT: Normocephalic, Atraumatic, Moist Mucous Membranes, No Ptosis, PERRLA and Nose Appears Normal
Respiratory: Clear to Auscultation and Non Labored Respirations
Cardiac: Regular Rhythm and S1/S2
Breast: Deferred by me
GI: Soft, Nontender, Nondistended, Normal Bowel Sounds and Other (PEG tube)
Genito-urinary: No Costovertebral Tender
Musculoskeletal: No Clubbing, No Cyanosis and No Edema
Skin: Warm
Neuro: Awake, Alert, Oriented, AO x 3 and No Motor Deficits
Psych: Calm
--- NOTE | 2025-05-19 11:18 | W.DCSUMMARY ---
Discharge Summary
Discharge Data
Date of Admission: 05/09/25
Date of Discharge: 05/19/25
Total time spent discharging patient (in min): 40
-
Pending Results: No
Hospital Course
Hospital course
Patient is 79 years old with history of paroxysmal A-fib, hypertension who presented with dysphagia and significant weight loss with CT abdomen pelvis with concern of esophageal carcinoma with metastasis, GI consulted and plan for EGD.
EGD shows:
Esophagus:
Partially obstructing, likely malignant tumor located at the distal esophagus and extending to the gastroesophageal (GE) junction. Appearance consistent with Siewert type I lesion.
Multiple biopsies obtained and sent for [place] pathology.
Malignant-appearing esophageal stricture secondary to the mass; scope passed with mild resistance.Stomach:
Ulcerated mass observed at the GE junction upon retroflexion.
Otherwise, stomach appeared normal on both direct and retroflexion views.Duodenum:
Normal appearance up to the third portion.Start on clear liquid diet.
Continue IV PPI 40 mg BID.
Hold Eliquis.may benefit from palliative esophageal stent; surgery consulted for feeding tube
S/P PEG tube, started on tube feeding
Will be discharged home on tube feeding
Follow-up with oncology as op.
During hospitalization patient was treated from the following
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
CT chest/abdomen/pelvis shows: circumferential wall thickening of the distal esophagus, highly suspicious for esophageal carcinoma.
Jackie metastatic disease involving mediastinal, bilateral hilar, distal paraesophageal, gastrohepatic, and retroperitoneal lymph nodes.
Multiple small hepatic metastases noted.
Mild urinary bladder wall thickening; recommend correlation with urinalysis for possible cystitis.
Keep patient NPO.
Continue IV fluids for hydration.
Plan for EGD Friday 05/11
continue PPI.
GI and Oncology consulted.EGD shows:
Esophagus:
Partially obstructing, likely malignant tumor located at the distal esophagus and extending to the gastroesophageal (GE) junction. Appearance consistent with Siewert type I lesion.
Multiple biopsies obtained and sent for [place] pathology.
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 Stomach:
Ulcerated mass observed at the GE junction upon retroflexion.
Started on clear liquid diet.
Continue IV PPI 40 mg BID.
Hold Eliquis.may benefit from palliative esophageal stent; GI to discuss with Dr. Freitas.
05/12
Status post PEG tube
05/13
Start tube feeding today
05/14
Tolerating tube feeding
� Moderate protein calorie malnutrition of chronic illness
tolerating tube feeding.
Acute UTI.
Urine culture shows E. coli.
Sensitive to Rocephin.
Continue Rocephin for now
Paroxysmal atrial fibrillation
Hold Eliquis for procedural requirements.
Continue metoprolol and diltiazem.
Resume Eliquis
Essential hypertension
Hold valsartan/HCTZ.
Normocytic anemia.
Continue to monitor
Hypomagnesemia
Replete and monitor magnesium levels.
DVT prophylaxis
Resume Eliquis
Code Status
Full code.
Diet: Clear liquid plus Jevity tube feeding
Family communication: Discussed with
Disposition: Discharge home .
Total time spent on today's encounter was 40 minutes which included time spent in counseling the patient/family regarding diagnosis and treatment plan as listed above, goals of care, and symptom management. Case was discussed with nursing staff,
specialists, and care coordinators/case management. All labs and imaging personally reviewed by me. Remainder the time spent in detailed review of previous records, lab data, imaging, and other medical provider documentation.
Anticipated Discharge: Today
Discharge Plan
-
Patient Disposition: Home with Home Care
Discharge Diagnosis/Procedures: Progressive dysphagia secondary to metastatic esophageal cancer
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
Paroxysmal atrial fibrillation
Diet: Tube feeding
Activity: No strenuous activity
Additional Activity: Avoid dislodging tube. Do not lift over 20lbs for the next 3-4 weeks
Bathing Restrictions: OK to Shower
Wound Care: Glue will flake off laparoscopic incisions over the next 2 weeks.
Ok to use dry gauze or drain sponge between G-Tube and skin to absorb any drainage and prevent friction. Change daily. Ok to remove for showers.
Activity Restrictions/Additional Instructions:
Call your surgeon or come to the ER immediately if tube becomes dislodged in the first 4-6 weeks
Instructions: Enteral (tube) feeding
Referrals:
Bruna Linder MD [Active, Family Practice]
Johanne Cruz DO [Active, Hematology / Oncology]
Tejas Rowland MD [Active, Surgical] - in two to four weeks
Deondre Blackmon DO [Active, Gastroenterology] - in two to three weeks
Prescriptions:
New
magnesium oxide 400 mg (241.3 mg magnesium) Tablet
400 mg feeding tube DAILY Qty: 30 0RF
Continued
diltiazem HCl [Cartia XT] 300 MG capsule,extended release 24hr
300 mg PO DAILY
losartan-hydrochlorothiazide [Hyzaar] 100-25 mg Tablet
1 tab PO DAILY
metoprolol succinate 25 mg Tablet Extended Release 24 Hr
25 mg PO DAILY
cholecalciferol (vitamin D3) [D3-2000] 50 mcg (2,000 unit) Capsule
2,000 mcg PO DAILY
omega 4-wpm-vzd-fish oil [Fish Oil] 1,200 (144-216) mg Capsule
2 cap PO DAILY
Eliquis 5 mg Tablet
5 mg PO BID
multivitamin Tablet
1 tab PO DAILY
econazole nitrate 1 % Cream
1 applic TOPICAL BID
estradiol 0.01 % (0.1 mg/gram) cream
1 g VAGINAL TUFR
GennaMD
1 cap PO DAILY
Rx Instructions:
cranberry 130mg
potassium chloride 20 mEq tablet,ER particles/crystals
20 meq PO DAILY
omeprazole 20 mg capsule,delayed release(DR/EC)
20 mg PO DAILY
Discharge Orders:
Discharge Patient (As Directed); Ordered 05/19/25
Ordered By: Terri Gaspar
Discharge Date and Time
Print Language: FAROESE
== END 2025-05-19 11:21 | disposition home health service (06) | DRG 375 ==
LOC: 3 WEST ACU 17:49
PROVIDERS: Hospitalist; Nurse Practitioner Family; Physician Assistant; Registered Nurse; ADMITTING PHYSICIAN Internal Medicine; ATTENDING PHYSICIAN General Practice; CONSULT PHYSICIAN Student in an Organized Health Care Education/Training Program; CONSULT PHYSICIAN Surgery; EMERGENCY PHYSICIAN Emergency Medicine; OTHER PHYSICIAN Internal Medicine Hematology & Oncology; REFERRING PHYSICIAN Family Medicine
PROC: 0DB48ZX Excision of Esophagogastric Junction, Via Natural or Artificial Opening Endoscopic, Diagnostic (ICD-10-PCS; 2025-05-11)
PROC: 0DH64UZ Insertion of Feeding Device into Stomach, Percutaneous Endoscopic Approach (ICD-10-PCS; 2025-05-12)
DX: C15.5 Malignant neoplasm of lower third of esophagus (principal); C77.1 Secondary and unspecified malignant neoplasm of intrathoracic lymph nodes; C77.5 Secondary and unspecified malignant neoplasm of intrapelvic lymph nodes; C78.7 Secondary malignant neoplasm of liver and intrahepatic bile duct; N39.0 Urinary tract infection, site not specified; E44.0 Moderate protein-calorie malnutrition; R13.14 Dysphagia, pharyngoesophageal phase; E78.00 Pure hypercholesterolemia, unspecified; G89.29 Other chronic pain; I10 Essential (primary) hypertension; M19.90 Unspecified osteoarthritis, unspecified site; J45.909 Unspecified asthma, uncomplicated; I48.0 Paroxysmal atrial fibrillation; M54.50 Low back pain, unspecified; R13.0 Aphagia; G47.33 Obstructive sleep apnea (adult) (pediatric); E11.36 Type 2 diabetes mellitus with diabetic cataract; I34.0 Nonrheumatic mitral (valve) insufficiency; I27.20 Pulmonary hypertension, unspecified; B96.20 Unspecified Escherichia coli [E. coli] as the cause of diseases classified elsewhere; E83.42 Hypomagnesemia; K22.2 Esophageal obstruction; D64.9 Anemia, unspecified; K66.0 Peritoneal adhesions (postprocedural) (postinfection); W06.XXXA Fall from bed, initial encounter; Y93.89 Activity, other specified; Y92.230 Patient room in hospital as the place of occurrence of the external cause; Z96.653 Presence of artificial knee joint, bilateral; Z88.5 Allergy status to narcotic agent; Z88.8 Allergy status to other drugs, medicaments and biological substances; Z82.49 Family history of ischemic heart disease and other diseases of the circulatory system; Z79.01 Long term (current) use of anticoagulants; Z68.26 Body mass index [BMI] 26.0-26.9, adult; Z79.899 Other long term (current) drug therapy
CPT/HCPCS: 71260; 74177; 80048; 80053; 81003; 81015; 82607; 82728; 82746; 83735; 84100; 85025; 85027; 87086; 88305; 88342; 88360; 93005; 96360; 97116; 97162; 97167; 97530; 99285; Q9967